=== PATIENT | male | born 1960 | race Caucasian/White ===

== ENCOUNTER 2017-03-09 16:56 | Inpatient (IN) ==
[2017-03-09] MEDS ORDERED: 0.9 % Sodium Chloride 1,000 ML IVC ONE ×2 (17:25→20:14)
--- NOTE | 2017-03-09 17:48 | Emergency Department Note ---
START Narrative - START START: I examined this patient and my medical decision-making was reviewed with the Resident Physician. I agree with the documented findings, disposition and treatment plan as described except to the extent set forth below. Patient was independently seen and evaluated by myself. Patient was seen with the emergency medicine resident Jacky Vences. Please see copy of her notes for details of this ED encounter management and disposition. Briefly: A 57-year-old male by private vehicle comfortably by his sister whose answering most questions, patient is poor historian. Complains of weakness swelling headache for the past several days and increased amount of seizures. Patient is neurologically nonfocal although slightly confused. Does follow some commands. CT scan noncontrast of the head pending EKG shows no acute ischemic changes labs are pending as well. Disposition pending. Provided 30 minutes of critical care service for this patient. Admission anticipated.
--- NOTE | 2017-03-09 17:52 | Emergency Department Note ---
Disposition Clinical Impression: LISA (acute kidney injury), Generalized weakness, Transient confusion Disposition: Admitted As Inpatient Condition: Fair Time of Disposition: 19:58 General Adult HPI - General Chief complaint: ED Dizziness Stated complaint: I think i had Seizures Time Seen by Provider: 03/09/17 17:01 Source: patient Limitations: no limitations Nursing Notes Reviewed: Yes Vital Signs Reviewed: Yes - History of Present Illness HPI Narrative: Patient is a 57-year-old male history of seizures and CKD, patient complains of weakness globally and possible seizures. Patient's sister at bedside who states she witnessed the patient being heavily confused and not answering questions but no shaking 1 day ago with one occurrence and repeat activity today 3 occurrences. Also notes increased bilateral lower leg and edema, increased abdominal girth No fevers no chills. No change in appetite no diarrhea. Patient notices periodic bright red blood when wiping ever since colonoscopy. Patient denies alcohol use, tobacco use, illicit drug use. Pain Scale: 0 - Related Data Home Medications Medication Instructions Recorded Confirmed Alprazolam [Xanax] 1 mg PO TID 01/07/16 04/26/16 Atenolol [Tenormin] 25 mg PO DAILY 04/15/16 04/26/16 Quetiapine Fumarate [Seroquel] 25 mg PO HS 04/15/16 04/26/16 Valsartan [Diovan] 320 mg PO DAILY 04/15/16 04/26/16 hydroCHLOROthiazide 12.5 mg PO DAILY 04/15/16 04/26/16 [Hydrochlorothiazide] Previous Rx's Medication Instructions Recorded Gabapentin [Neurontin] 200 mg PO TID #90 capsule 04/16/16 LevETIRAcetam [Keppra] 500 mg PO Q12HR #60 tablet 04/16/16 Omeprazole 20 mg PO DAILY #30 tablet. 04/16/16 Azithromycin [Zithromax] 250 mg PO DAILY #6 tablet 07/06/16 GuaiFENesin/Dextromethorphan 5 ml PO Q6H PRN #120 ml 07/06/16 [Robitussin Cough-Chest Dm Liq] Loratadine [Claritin] 10 mg PO DAILY #30 tablet 07/06/16 Cefdinir [Omnicef] 300 mg PO BID #20 capsule 07/12/16 Ondansetron [Zofran] 8 mg PO TID PRN #12 tablet 07/12/16 Phenylephrine HCl/Prometh HCl 5 ml PO QID PRN #120 syrup 07/12/16 [Promethazine Vc Syrup] Allergies Allergy/AdvReac Type Severity Reaction Status Date / Time No Known Allergies Allergy Verified 03/09/17 16:58 All systems ED: reviewed and negative except as stated. Review of Systems: As Per HPI Constitutional: Reports: weakness. Denies: fever, chills Eyes: Denies: vision change ENT ED: Reports: congestion Cardiovascular: Denies: chest pain, palpitations Respiratory: Reports: cough Gastrointestinal: Reports: hematochezia. Denies: abdominal pain, nausea, vomiting, diarrhea Genitourinary: Reports: other (oliguria). Denies: urgency, dysuria Musculoskeletal: Reports: joint swelling, myalgia. Denies: back pain, neck pain Integumentary: Denies: rash Neurological: Reports: weakness, paresthesias. Denies: headache Psychiatric: Reports: anxiety Endocrine: Reports: fatigue Hematological/Lymphatic: Denies: easy bleeding Allergic/Immunologic: Denies: facial swelling Past Medical History - Past Medical History Attestation: Yes The following information was validated with the patient. Source: patient, obtained from family (sister) Medical history: Reports: hypertension, renal disease, seizures Surgical history: Reports: no surgical history Psychiatric history: Reports: anxiety - Social History Smoking Status: Never smoker Smokeless Tobacco Status: No Alcohol use: Reports: none Drug use: Reports: none Physical Exam - General Limitations: no limitations General appearance: alert - Head Head exam: atraumatic, normocephalic, normal inspection - Eye Eye exam: Present: normal appearance, PERRL, EOMI - ENT ENT exam: normal exam, normal oropharynx, mucous membranes moist - Neck Neck exam: Present: normal inspection, full ROM, trachea midline - Chest Chest inspection: Present: normal inspection, symmetric chest wall rise - Respiratory Respiratory exam: Present: other (Bilateral lower lung alex Rales) - Cardiovascular Cardiovascular exam: Present: regular rate, normal rhythm, normal heart sounds - Abdominal Exam Abdominal exam: Present: tenderness (Bilateral middle sections of abdomen) - Extremities Exam Extremities exam: Present: normal capillary refill, pedal edema (1+). Absent: tenderness - Back Exam Back exam: Present: normal inspection, full ROM. Absent: tenderness, CVA tenderness (R), CVA tenderness (L) - Neurological Exam Neurological exam: Present: alert, oriented X3, CN II-XII intact - Psychiatric Psychiatric exam: Present: normal affect, normal mood - Skin Skin exam: Present: warm, dry, intact, normal color Course - Reevaluation(s) Reevaluation #1: labs ordered Time: 17:51 Reevaluation #2: Patient's labs show acute kidney injury with elevation of creatinine Time: 18:40 - Consultations Consultation #1: Dr. Troy Hospitalist has accepted Pt for admission. Time: 19:55 Vital Signs Temperature 98.2 F 03/09/17 16:58 Pulse Rate 95 03/09/17 16:58 Respiratory Rate 20 03/09/17 16:58 Blood Pressure 89/63 03/09/17 16:58 O2 Sat by Pulse Oximetry 95 03/09/17 16:58 Temperature 97.7 F 03/09/17 23:43 Pulse Rate 85 03/09/17 23:43 Respiratory Rate 20 03/09/17 23:43 Blood Pressure 127/69 03/09/17 23:43 O2 Sat by Pulse Oximetry 96 03/09/17 23:43 Oxygen Delivery Oxygen Delivery Room Air Medical Decision Making - MDM Narrative Medical decision making narrative: Patient concerning for fluid retention, weakness and confusion secondary to CVA , ACS/AL, CHF, kidney failure. CT head is negative. Patient was found to have elevated creatinine level of 2.10 which is new today. Patient's concerning for acute kidney injury with history of CKD. Patient also has oliguria. Plan for fluid rehydration with repeated boluses of normal saline, and admission for further evaluation. Patient accepts decision for admission. Patient is admitted, Dr. Troy Hospitalist has accepted Pt for admission. - Medical Records Medical records reviewed: Yes I reviewed the patient's medical records. Excerpt from previous medical record entry for previous kidney injury by Dr. Caldwell. States: The patient is presenting with multifactorial nonoliguric acute kidney injury secondary to volume depletion and rhabdomyolysis with ongoing diuretic and ARB use. We are currently awaiting the results of the ultrasound. I agree with continuing intravenous hydration. Hold his diuretic and angiotensin receptor anabel. Avoid nephrotoxins and adjust his medications for his renal function. - Lab Data Lab results reviewed: Yes I reviewed the patient's lab results. Lab results narrative: Short CBC 03/10/17 03/09/17 Range/Units 00:38 17:45 WBC 9.6 7.9 (4.3-11.1) K/mcL Hgb 12.6 L 13.5 (12.9-16.9) g/dL Hct 37.4 L 40.2 (37.5-50.1) % Plt Count 186 234 (140-400) K/mcL Neutrophils # 5.2 4.0 (1.6-8.9) K/mcL BMP 03/10/17 03/09/17 Range/Units 00:38 17:45 Sodium 141 139 (136-145) mEq/L Potassium 4.2 4.4 (3.5-4.5) mEq/L Chloride 111 H 109 (98-109) mEq/L Carbon Dioxide 22 15 L (19-29) mEq/L BUN 19 21 (8-26) mg/dL Creatinine 1.46 H 2.10 H (0.72-1.25) mg/dL Glucose 137 H 115 H (70-99) mg/dL Calcium 8.2 L 8.9 (8.6-10.8) mg/dL Cardiac Enzymes 03/09/17 Range/Units 17:45 Troponin I 0.01 (0-0.03) ng/mL Liver Function 03/10/17 Range/Units 00:38 Total Bilirubin < 0.3 (0.2-1.2) mg/dL AST 16 (5-34) Units/L ALT 29 (0-55) Units/L Alkaline Phosphatase 48 (38-126) Units/L Albumin 3.2 L (3.5-5.0) g/dL Urine 03/09/17 Range/Units 19:23 Urine Color Yellow (Yellow) Urine Clarity Clear (Clear) Urine pH 5.5 (5.0-8.0) pH Units Ur Specific [place] 1.030 H (1.010-1.025) Urine Protein Trace (Neg-Trace) mg/dL Urine Glucose (UA) Normal (Normal) mg/dL Result diagrams: 03/10/17 00:38 03/10/17 00:38 Lab Results 03/09/17 03/09/17 03/09/17 Range/Units 17:45 17:45 17:45 WBC 7.9 (4.3-11.1) K/mcL RBC 4.26 (4.19-5.50) M/mcL Hgb 13.5 (12.9-16.9) g/dL Hct 40.2 (37.5-50.1) % MCV 94.4 (83.0-100.0) fL MCH 31.7 (28.0-33.3) pg MCHC 33.6 (31.6-35.5) g/dL RDW 11.9 (11.5-14.5) % Plt Count 234 (140-400) K/mcL MPV 10.7 (9.4-12.4) fL Immature Gran % 0.8 (0-4) % Seg Neutrophils % 50.8 % Lymphocytes % 37.0 % Monocytes % 9.6 % Eosinophils % 0.9 % Basophils % 0.9 % Neutrophils # 4.0 (1.6-8.9) K/mcL Lymphocytes # 2.9 (0.6-4.6) K/mcL Monocytes # 0.8 (0.0-1.3) K/mcL Eosinophils # 0.1 (0.0-0.6) K/mcL Basophils # 0.1 (0.0-0.2) K/mcL Immature Plt Fraction 5.2 (1.1-6.1) % Sodium 139 (136-145) mEq/L Potassium 4.4 (3.5-4.5) mEq/L Chloride 109 (98-109) mEq/L Carbon Dioxide 15 L (19-29) mEq/L BUN 21 (8-26) mg/dL Creatinine 2.10 H (0.72-1.25) mg/dL Est GFR ( Amer) 40 L (> 60) Est GFR (Non-Af Amer) 33 L (> 60) BUN/Creatinine Ratio 10 (6-26) Glucose 115 H (70-99) mg/dL POC Glucose (58-89) Calculated Osmolality 292 (280-300) Calcium 8.9 (8.6-10.8) mg/dL Creatine Kinase 90 (30-200) Units/L Troponin I 0.01 (0-0.03) ng/mL Urine Color (Yellow) Urine Clarity (Clear) Urine pH (5.0-8.0) pH Units Ur Specific [place] (1.010-1.025) Urine Protein (Neg-Trace) mg/dL Urine Glucose (UA) (Normal) mg/dL Urine Ketones (Negative) mg/dL Urine Blood (Negative) Urine Nitrite (Negative) Urine Bilirubin (Negative) Urine Urobilinogen (Normal) mg/dL Ur Leukocyte Esterase (Negative) Ur Culture Indicated? (NO) 03/09/17 03/09/17 Range/Units 19:23 20:42 WBC (4.3-11.1) K/mcL RBC (4.19-5.50) M/mcL Hgb (12.9-16.9) g/dL Hct (37.5-50.1) % MCV (83.0-100.0) fL MCH (28.0-33.3) pg MCHC (31.6-35.5) g/dL RDW (11.5-14.5) % Plt Count (140-400) K/mcL MPV (9.4-12.4) fL Immature Gran % (0-4) % Seg Neutrophils % % Lymphocytes % % Monocytes % % Eosinophils % % Basophils % % Neutrophils # (1.6-8.9) K/mcL Lymphocytes # (0.6-4.6) K/mcL Monocytes # (0.0-1.3) K/mcL Eosinophils # (0.0-0.6) K/mcL Basophils # (0.0-0.2) K/mcL Immature Plt Fraction (1.1-6.1) % Sodium (136-145) mEq/L Potassium (3.5-4.5) mEq/L Chloride (98-109) mEq/L Carbon Dioxide (19-29) mEq/L BUN (8-26) mg/dL Creatinine (0.72-1.25) mg/dL Est GFR ( Amer) (> 60) Est GFR (Non-Af Amer) (> 60) BUN/Creatinine Ratio (6-26) Glucose (70-99) mg/dL POC Glucose 90 H (58-89) Calculated Osmolality (280-300) Calcium (8.6-10.8) mg/dL Creatine Kinase (30-200) Units/L Troponin I (0-0.03) ng/mL Urine Color Yellow (Yellow) Urine Clarity Clear (Clear) Urine pH 5.5 (5.0-8.0) pH Units Ur Specific [place] 1.030 H (1.010-1.025) Urine Protein Trace (Neg-Trace) mg/dL Urine Glucose (UA) Normal (Normal) mg/dL Urine Ketones Trace H (Negative) mg/dL Urine Blood Negative (Negative) Urine Nitrite Negative (Negative) Urine Bilirubin Small H (Negative) Urine Urobilinogen Normal (Normal) mg/dL Ur Leukocyte Esterase Negative (Negative) Ur Culture Indicated? NO (NO) - Radiology Data Radiology results reviewed: Yes I reviewed the patient's radiology results. Head CT 03/09/17 17:25 IMPRESSION: No acute intracranial abnormality. D/ / Isaac Stein MD / Isaac Stein MD Interpreting Provider: Isaac Steni MD - EKG Data EKG #1 EKG attestation: Yes I reviewed and interpreted this EKG. EKG results narrative: EKG taken 03/09/2017 at 1729 hrs. shows sinus rhythm with no acute ST elevations or depressions in any leads, no QRS widening or QT prolongation. Previous EKG for comparison shows sinus tachycardia this is taking 12/27/[address] changes no ST elevations and depressions in any leads. No QRS Widening or QT prolongation.
[2017-03-09 17:54] LABS: Basophils # 0.1 K/mcL (0.0-0.2); Basophils % 0.9 %; Eosinophils # 0.1 K/mcL (0.0-0.6); Eosinophils % 0.9 %; Hematocrit 40.2 % (37.5-50.1); Hemoglobin 13.5 g/dL (12.9-16.9); Immature Granulocytes % 0.8 % (0-4); Immature Platelets 5.2 % (1.1-6.1); Lymphocytes # 2.9 K/mcL (0.6-4.6); Mean Corpuscular HGB Conc 33.6 g/dL (31.6-35.5); Mean Corpuscular Hemoglobin 31.7 pg (28.0-33.3); Mean Corpuscular Volume 94.4 fL (83.0-100.0); Mean Platelet Volume 10.7 fL (9.4-12.4); Monocytes # 0.8 K/mcL (0.0-1.3); Monocytes % 9.6 %; Platelet Count 234 K/mcL (140-400); Red Blood Count 4.26 M/mcL (4.19-5.50); Red Cell Distribution Width 11.9 % (11.5-14.5); Segmented Neutrophils % 50.8 %
[2017-03-09 18:00] LABS: Potassium 4.4 mEq/L (3.5-4.5)
[2017-03-09 18:42] LABS: Calcium 8.9 mg/dL (8.6-10.8)
[2017-03-09 19:32] LABS: Bilirubin,Urine Small (Negative); Blood,Urine Negative (Negative); Color,Urine Yellow (Yellow); Glucose,Urine (UA) Normal (Normal); Ketones,Urine Trace mg/dL (Negative); Leukocyte Esterase,Urine Negative (Negative); Nitrite,Urine Negative (Negative); PH,Urine 5.5 pH Units (5.0-8.0); Protein,Urine Trace mg/dL (Neg-Trace); Urobilinogen,Urine Normal (Normal)
[2017-03-09 19:37] LABS: Clarity,Urine Clear (Clear)
[2017-03-09] MEDS ORDERED: Acetaminophen 325 MG TABLET PO PRN (21:24)
[2017-03-09] MEDS ORDERED: Ondansetron 4 MG/2 ML VIAL IVP PRN (21:24)
[2017-03-09] MEDS ORDERED: Naloxone 0.4 MG/ML INJ IVP PRN (21:24)
--- NOTE | 2017-03-09 21:43 | Internal Med History&Physical ---
Date of Encounter: 03/09/17 Time of Encounter: 21:35 Assessment and Plan (1) LISA (acute kidney injury) Current visit: No Status: Resolved 1. I suspect this is due to volume depletion and BP meds. 2. Hold BP meds and diuretics. 3. Verify home meds when possible. 4. IVF hydration. 5. Monitor I/O. 6. Consult nephrology. (2) Dehydration Current visit: No Status: Acute 1. IVF and oral hydration. 2. Stop diuretics. (3) Seizure Current visit: No Status: Acute 1. Continue Keppra and Xanax per home dosing. 2. Seizure precautions. 3. Consult Neurology. (4) DVT prophylaxis Current visit: No Status: Acute 1. Heparin SQ. Internal Medicine - H&P: HPI Chief complaint: seizure; LISA Admitted From: Emergency Dept Plans for Post Hospital Care: Home History of present illness: Mr. Morgan is a 57 year old male who presents the ER tonight with complaints of seizure activity at home, weakness, and low blood pressure. He was found to have evidence of acute kidney failure in the ER. He was also hypotensive and volume depleted. As such, he was admitted to the hospitalist service. Upon my assessment of the patient, he is in no distress. He has a seizure disorder and states he was well controlled with rare breakthrough seizures. However, today, he states he had a seizure witnessed by his sister. He also states his oral fluid intake has been minimal lately and his urine output has been minimal as well. According to his medication list, he takes a diuretic and an ARB for blood pressure control. His medication list has not been validated and he can not confirm his medications. However, he does admit to taking a diuretic and blood pressure medications. I suspect he became volume depleted over time and hypotensive with his blood pressure medications. We will fluid resuscitate him and watch him closely. He denies any fevers, chills, cough, congestion, dysuria, headache, sore throat , vomiting, or diarrhea. Overall, he has been feeling well up until yesterday and today when he had a seizure and decreased oral intake. Past Med Surg Social Fam HX - Past Medical History Attestation: Yes The following information was validated with the patient. Source: patient, old records reviewed Medical history: hypertension, renal disease, seizures Psychiatric history: anxiety - Past Surgical History Surgical History: no surgical history - Social History Smoking Status: Never smoker Smokeless Tobacco Status: No Alcohol use: none Drug use: none Current living situation: Home, With Family Activity Level: Independent ambulation Recent Out of Country Travel Within the Last 8 Weeks: No - Family History Mother History Unknown: Yes Father History Unknown: Yes Sister Living Status: Still Living Hx Family Genitourinary Disorders: No Internal Medicine - H&P: Meds Alprazolam [Xanax] 1 mg PO TID 01/07/16 [History] Atenolol [Tenormin] 25 mg PO DAILY 04/15/16 [History] Quetiapine Fumarate [Seroquel] 25 mg PO HS 04/15/16 [History] Valsartan [Diovan] 320 mg PO DAILY 04/15/16 [History] hydroCHLOROthiazide [Hydrochlorothiazide] 12.5 mg PO DAILY 04/15/16 [History] Gabapentin [Neurontin] 200 mg PO TID #90 capsule 04/16/16 [Rx] LevETIRAcetam [Keppra] 500 mg PO Q12HR #60 tablet 04/16/16 [Rx] Omeprazole 20 mg PO DAILY #30 tablet. 04/16/16 [Rx] Azithromycin [Zithromax] 250 mg PO DAILY #6 tablet 07/06/16 [Rx] GuaiFENesin/Dextromethorphan [Robitussin Cough-Chest Dm Liq] 5 ml PO Q6H PRN # 120 ml 07/06/16 [Rx] Loratadine [Claritin] 10 mg PO DAILY #30 tablet 07/06/16 [Rx] Cefdinir [Omnicef] 300 mg PO BID #20 capsule 07/12/16 [Rx] Ondansetron [Zofran] 8 mg PO TID PRN #12 tablet 07/12/16 [Rx] Phenylephrine HCl/Prometh HCl [Promethazine Vc Syrup] 5 ml PO QID PRN #120 syrup 07/12/16 [Rx] 3 Allergy/AdvReac Type Severity Reaction Status Date / Time No Known Allergies Allergy Verified 03/09/17 16:58 - Constitutional Constitutional: no chills, no fever(s), no night sweats - EENT Eyes: no blurry vision, no change in vision Ears: no ear pain, no tinnitus Nose, mouth and throat: no nasal congestion, no sinus pain, no sinus pressure, no sore throat - Cardiovascular Cardiovascular ROS IM: no chest pain, no diaphoresis, no dyspnea, no dyspnea on exertion, no edema - Respiratory Respiratory: no cough, no dyspnea, no chest congestion, no excessive phlegm production, no change in phlegm color - Gastrointestinal Gastrointestinal: no abdominal pain, no diarrhea, no hematemesis, no hematochezia, no melena, no nausea, no vomiting - Genitourinary Genitourinary ROS male: no dysuria, no flank pain, no hematuria - Musculoskeletal Musculoskeletal ROS IM: no arthralgias, no back pain - Integumentary Integumentary IM: no rash, no jaundice - Neurological Neurological ROS: convulsions, no dizziness, no focal weakness, no frequent falls, no headache(s) - Psychiatric Psychiatric: no anxiety, no depression - Endocrine Endocrine IM: no cold intolerance, no heat intolerance, no polydipsia, no polyuria - Hematologic/Lymphatic Hematologic/Lymphatic: no easy bruising, no lymphadenopathy - Allergic/Immunologic Allergic/Immunologic: no wheezing, no GI upset with certain foods - Constitutional Vitals: Temp Pulse Resp BP Pulse Ox 97.8 F 73 18 107/90 96 03/09/17 20:59 03/09/17 20:59 03/09/17 20:59 03/09/17 20:59 03/09/17 20:59 General appearance: Present: cooperative, A&O X 3, pleasant, no acute distress, answers questions appropriately - Head Head exam: Present: atraumatic, normal inspection - Eye Eye exam: Present: EOMI, normal appearance, PERRL. Absent: scleral icterus Pupils: Present: normal accommodation - ENT ENT exam: Present: mucous membranes dry, normal exam - Neck Neck exam general surgery: Present: full ROM, supple. Absent: tenderness, nuchal rigidity - Expanded Neck Exam Neck exam: Absent: carotid bruit - Respiratory Respiratory exam: Present: CTAB. Absent: chest wall tenderness, rales, respiratory distress, rhonchi, wheezes - Cardiovascular Cardiovascular exam: Present: RRR, +S1, +S2. Absent: diastolic murmur, systolic murmur - GI/Abdominal GI/Abdominal exam: Present: normal bowel sounds, soft. Absent: hepatomegaly, mass, splenomegaly, tenderness - Extremities Exam Extremities exam: Present: full ROM, normal capillary refill, warm, radial pulses palpable and symmetrical. Absent: calf tenderness, joint swelling, pedal edema - Back Exam Back exam: Present: normal inspection. Absent: CVA tenderness (L), CVA tenderness (R) - Neurological Exam Neurological exam: Present: alert, CN II-XII intact, oriented X3, reflexes normal, no focal deficits, strengths equal and symetr throughout - Psychiatric Psychiatric exam: Present: normal affect, normal mood - Skin Skin exam: Present: dry, warm. Absent: rash Internal Med - H&P Results - Labs CBC & Chem 7: 03/09/17 17:45 03/09/17 17:45 - EKG Data -: EKG Interpreted by Myself EKG shows normal: sinus rhythm - EKG Data Prior EKG available for review: yes When compared to previous EKG: there is no significant change EKG comments: 03/09/17 21:47 NSR; WNL - Diagnostic Studies CT scan - head Additional comments: Report reviewed -- negative
[2017-03-09] MEDS: ALPRAZolam 1 MG TABLET PO PRN (22:47)
[2017-03-09] MEDS: levETIRAcetam 250 MG TABLET PO SCH (23:36)
[2017-03-10 00:53] LABS: Basophils # 0.1 K/mcL (0.0-0.2); Basophils % 0.5 %; Eosinophils # 0.1 K/mcL (0.0-0.6); Eosinophils % 1.3 %; Hematocrit 37.4 % (37.5-50.1); Hemoglobin 12.6 g/dL (12.9-16.9); Immature Granulocytes % 0.5 % (0-4); Immature Platelets 5.2 % (1.1-6.1); Lymphocytes # 3.4 K/mcL (0.6-4.6); Lymphocytes % 34.9 %; Mean Corpuscular HGB Conc 33.7 g/dL (31.6-35.5); Mean Corpuscular Hemoglobin 32.1 pg (28.0-33.3); Mean Corpuscular Volume 95.4 fL (83.0-100.0); Monocytes # 0.8 K/mcL (0.0-1.3); Monocytes % 8.6 %; Neutrophils # 5.2 K/mcL (1.6-8.9); Platelet Count 186 K/mcL (140-400); Red Blood Count 3.92 M/mcL (4.19-5.50); Red Cell Distribution Width 12.2 % (11.5-14.5); Segmented Neutrophils % 54.2 %
[2017-03-10 01:09] LABS: BUN/Creatinine Ratio 13 (6-26); Blood Urea Nitrogen 19 mg/dL (8-26); Carbon Dioxide 22 mEq/L (19-29); Chloride 111 mEq/L (98-109); Glucose 137 mg/dL (70-99); Osmolality,Calculated 296 (280-300); Potassium 4.2 mEq/L (3.5-4.5); Sodium 141 mEq/L (136-145); eGFR For African Americans > 60 (> 60); eGFR For Non-African Americans 50 (> 60)
[2017-03-10 01:10] LABS: Alanine Aminotransferase 29 Units/L (0-55); Albumin 3.2 g/dL (3.5-5.0); Albumin/Globulin Ratio 1.1 (1.1-2.2); Alkaline Phosphatase 48 Units/L (38-126); Aspartate Amino Transferase 16 Units/L (5-34); Calcium 8.2 mg/dL (8.6-10.8); Globulin 2.9 g/dL (2.4-3.5); Magnesium 2.1 mg/dL (1.6-2.6); Total Protein 6.1 g/dL (6.0-8.3)
[2017-03-10 01:12] LABS: Bilirubin,Total < 0.3 mg/dL (0.2-1.2)
[2017-03-10] MEDS: 0.9 % Sodium Chloride 1,000 ML IVC SCH ×4 (02:15→18:56)
[2017-03-10] MEDS: *HR* Heparin 5,000 UNIT/ML VIAL SQ SCH ×2 (05:31→17:41)
[2017-03-10] MEDS: levETIRAcetam 250 MG TABLET PO SCH (08:55)
--- NOTE | 2017-03-10 09:55 | Internal Med Progress Note ---
<Nicole García - Last Filed: 03/10/17 11:36> Date of Encounter: 03/10/17 Time of Encounter: 09:55 - Assessment and plan (1) LISA (acute kidney injury) Current Visit: Yes Status: Acute Assessment and plan: Suspected to be secondary to volume depletion and BP meds Baseline SCr around 1, follows with Dr. Tavarez SCr 1.46<2.10, GFR 50 3L intake since admission UOP 275ml 03/09, 1675ml 03/10 Plan: -Continue IVF, will decrease rate to 75/hr -Strict I/O -Hold BP meds and diuretics -Avoid nephrotoxins and renally dose medications -Nephrology has been consulted, appreciate their recommendations. (2) Dehydration Current Visit: Yes Status: Acute Assessment and plan: Patient has had decreased oral intake in the setting of taking PO diuretics Plan: -IVF -Oral hydration -Stop diuretics (3) Seizure Current Visit: Yes Status: Acute Assessment and plan: Patient has history of seizure disorder, follow with Dr. Bright States he has good control with rare breakthrough seizures--last seizure several months ago presented with seizure activity 03/09, states he was weak and not feeling well prior, decreased oral intake Plan: -Continue Keppra 500mg QAM and 1000mg QPM -Continue PRN xanax -Continue seroquel QHS -Seizure precautions -Neurology consulted, appreciate their recommendations. (4) DVT prophylaxis Current Visit: No Status: Acute Assessment and plan: Heparin SQ - Subjective Interval history: Patient seen and examined. He states that he is feeling much better, is less dizzy when standing or sitting up at the bedside. No CP, SOB, abd pain, dysuria. He notes he has been taking diovan and atenolol, has not been taking HCTZ because it has not been sent by [facility]. - Constitutional Vitals: Temp Pulse Resp BP Pulse Ox 97.5 F L 85 20 128/68 98 03/10/17 07:36 03/10/17 08:36 03/10/17 08:36 03/10/17 08:36 03/10/17 08:36 General appearance: Present: cooperative, A&O X 3, pleasant, no acute distress, obese, answers questions appropriately - Head Head exam: Present: atraumatic, normocephalic - Eye Eye exam: Present: EOMI, PERRL, conjuntiva pink, sclera anicteric Pupils: Present: normal accommodation, PERRL - Neck Neck exam general surgery: Present: supple, trachea midline - Respiratory Respiratory exam: Present: rhonchi (b/l bases). Absent: accessory muscle use, respiratory distress, tachypnea - Cardiovascular Cardiovascular exam: Present: RRR, +S1, +S2. Absent: diastolic murmur, gallop, rubs, systolic murmur - GI/Abdominal GI/Abdominal exam: Present: normal bowel sounds, soft, no peritoneal signs. Absent: distended, tenderness - Extremities Exam Extremities exam: Present: normal capillary refill, pedal edema, warm, radial pulses palpable and symmetrical. Absent: calf tenderness, cyanotic - Neurological Exam Neurological exam: Present: oriented X3, no focal deficits. Absent: motor sensory deficit, facial droop, speech deficit - Psychiatric Psychiatric exam: Present: normal affect, normal mood - Skin Skin exam: Present: dry, intact, warm Internal Medicine: Result - Labs CBC & Chem 7: 03/10/17 00:38 03/10/17 00:38 Labs: Short CBC 03/10/17 Range/Units 00:38 WBC 9.6 (4.3-11.1) K/mcL Hgb 12.6 L (12.9-16.9) g/dL Hct 37.4 L (37.5-50.1) % Plt Count 186 (140-400) K/mcL Neutrophils # 5.2 (1.6-8.9) K/mcL BMP 03/10/17 00:38 Sodium 141 Potassium 4.2 Chloride 111 H Carbon Dioxide 22 BUN 19 Creatinine 1.46 H Glucose 137 H Calcium 8.2 L Liver Function 03/10/17 Range/Units 00:38 Total Bilirubin < 0.3 (0.2-1.2) mg/dL AST 16 (5-34) Units/L ALT 29 (0-55) Units/L Alkaline Phosphatase 48 (38-126) Units/L Albumin 3.2 L (3.5-5.0) g/dL Consult Discharge Plan - Plan Referrals: Joe Harkins, PAC [Primary Care Provider] - <Rah Hernandez H - Last Filed: 03/10/17 15:03> Date of Encounter: 03/10/17 - Constitutional Vitals: Temp Pulse Resp BP Pulse Ox 97.6 F 85 20 128/68 98 03/10/17 11:49 03/10/17 08:36 03/10/17 08:36 03/10/17 08:36 03/10/17 08:36 Internal Medicine: Result - Labs CBC & Chem 7: 03/10/17 00:38 03/10/17 00:38 Labs: Short CBC 03/10/17 Range/Units 00:38 WBC 9.6 (4.3-11.1) K/mcL Hgb 12.6 L (12.9-16.9) g/dL Hct 37.4 L (37.5-50.1) % Plt Count 186 (140-400) K/mcL Neutrophils # 5.2 (1.6-8.9) K/mcL BMP 03/10/17 00:38 Sodium 141 Potassium 4.2 Chloride 111 H Carbon Dioxide 22 BUN 19 Creatinine 1.46 H Glucose 137 H Calcium 8.2 L Liver Function 03/10/17 Range/Units 00:38 Total Bilirubin < 0.3 (0.2-1.2) mg/dL AST 16 (5-34) Units/L ALT 29 (0-55) Units/L Alkaline Phosphatase 48 (38-126) Units/L Albumin 3.2 L (3.5-5.0) g/dL - Attending Attestation continue IVF , rechech BMP in am I examined this patient and my medical decision-making was reviewed with the Resident Physician. I agree with the documented findings, disposition and treatment plan as described except to the extent set forth below.
[2017-03-10] MEDS: ALPRAZolam 1 MG TABLET PO PRN ×3 (10:38→20:02)
--- NOTE | 2017-03-10 12:50 | Event Note ---
Date of Encounter: 03/10/17 Time of Encounter: 12:33 Nephrology Non-oliguric LISA, likely prerenal. Continue to hold is ARB and provide IVF. He has a hx of frequent AKIs. Full note and recommendations to follow tomorrow. Thank you for consulting the [facility]. Will follow with you.
[2017-03-10] MEDS: Pregabalin 75 MG CAPSULE PO SCH (16:05)
[2017-03-10] MEDS ORDERED: levETIRAcetam 250 MG TABLET PO SCH (18:00)
--- NOTE | 2017-03-10 18:08 | Electrocardiograph Report ---
[address] [address] Test Date: 2017-03-09 Pat Name: Arley Morgan Department: 0 Room: 02 Gender: M Patient Intake Coordinator: [facility] : 1960 Requested By: Robbie Connolly Order Number: [id number] Reading MD: Didier Sewell MD Measurements Intervals [place] Rate: 88 P: 23 [place]: 125 QRS: 12 QRSD: 96 T: 19 QT: 373 QTc: 419 Interpretive Statements SINUS RHYTHM Electronically Signed On 03-10-2017 18:07:00 EDT by Didier Sewell MD
--- NOTE | 2017-03-10 19:37 | Neurology Progress Note ---
Date of Encounter: 03/10/17 Time of Encounter: 19:33 Assessment and Plan (1) Seizure Current Visit: Yes Status: Acute These are likely partial seizures from description but it may also be related to worsening encephalopathy secondary to acute renal failure. it is noted that the spells were also associated with significant weakness and confusion. He has been feeling with current medical treatment. Will recommend no changes in his antiepileptic therapy. Continue Keppra 500mg and 1000mg qpm. He is to follow up with Dr. Tammie Guzman in one week after discharge. Subjective Principal diagnosis: seizure Interval history: Patient is a 57 year old man with seizure disorder and CKD who developed seizure likely activity x2 within the last few days prior to admission. Patient is known to neurology here at [facility]. Was last seen 10/2016. On Keppra 500mg qam and 1000mg qpm. Seizures described as 'bewildered state' spells described by his sister. The spells last 3-4 minutes in duration and after that he would be confused for a while. He also experienced diffuse weakness and leg weakness. no GTC reported. No convulsion type of seizures. First seizure occurred about one year ago. It was the same thing followed by a fall. been taking keppra 500mg qam and 1000mg qpm. It has been helping. Patient is currently feeling better. He has chronic kidney disease and after fluid rescucitation he felt better already. Would like to continue what he is taking without changes. Objective - Constitutional Vitals: Temp Pulse Resp BP Pulse Ox 97.8 F 89 20 115/93 98 03/10/17 17:05 03/10/17 17:00 03/10/17 17:00 03/10/17 17:00 03/10/17 08:36 Results - Laboratory Findings CBC and BMP: 03/10/17 00:38 03/10/17 00:38 Abnormal lab findings: Abnormal lab results RBC 3.92 M/mcL (4.19-5.50) L 03/10/17 00:38 Hgb 12.6 g/dL (12.9-16.9) L 03/10/17 00:38 Hct 37.4 % (37.5-50.1) L 03/10/17 00:38 Chloride 111 mEq/L (98-109) H 03/10/17 00:38 Creatinine 1.46 mg/dL (0.72-1.25) H 03/10/17 00:38 Est GFR (Non-Af Amer) 50 (> 60) L 03/10/17 00:38 Glucose 137 mg/dL (70-99) H 03/10/17 00:38 POC Glucose 90 (58-89) H 03/09/17 20:42 Calcium 8.2 mg/dL (8.6-10.8) L 03/10/17 00:38 Albumin 3.2 g/dL (3.5-5.0) L 03/10/17 00:38 Ur Specific [place] 1.030 (1.010-1.025) H 03/09/17 19:23 Urine Ketones Trace mg/dL (Negative) H 03/09/17 19:23 Urine Bilirubin Small (Negative) H 03/09/17 19:23 Consult Discharge Plan - Plan Referrals: Joe Harkins, PAC [Primary Care Provider] -
[2017-03-11] MEDS: 0.9 % Sodium Chloride 1,000 ML IVC SCH (05:02)
[2017-03-11] MEDS: *HR* Heparin 5,000 UNIT/ML VIAL SQ SCH (05:03)
[2017-03-11 05:13] LABS: Hematocrit 38.7 % (37.5-50.1); Hemoglobin 12.9 g/dL (12.9-16.9); Mean Corpuscular HGB Conc 33.3 g/dL (31.6-35.5); Mean Corpuscular Hemoglobin 31.1 pg (28.0-33.3); Mean Corpuscular Volume 93.3 fL (83.0-100.0); Mean Platelet Volume 10.8 fL (9.4-12.4); Platelet Count 178 K/mcL (140-400); Red Blood Count 4.15 M/mcL (4.19-5.50); Red Cell Distribution Width 11.7 % (11.5-14.5)
[2017-03-11 05:29] LABS: BUN/Creatinine Ratio 15 (6-26); Blood Urea Nitrogen 15 mg/dL (8-26); Calcium 8.7 mg/dL (8.6-10.8); Carbon Dioxide 24 mEq/L (19-29); Chloride 110 mEq/L (98-109); Glucose 112 mg/dL (70-99); Osmolality,Calculated 294 (280-300); Potassium 4.4 mEq/L (3.5-4.5); Sodium 141 mEq/L (136-145); eGFR For African Americans > 60 (> 60); eGFR For Non-African Americans > 60 (> 60)
[2017-03-11 05:31] LABS: Albumin 3.2 g/dL (3.5-5.0); Phosphorous 3.2 mg/dL (2.3-4.7)
[2017-03-11 07:17] VITALS: BP 142/88
--- NOTE | 2017-03-11 08:03 | Event Note ---
Date of Encounter: 03/11/17 Time of Encounter: 08:01 Nephrology chart review Pt had a prerenal LISA which has resolved to a normal SCr. He already happens to have a follow-up appt on 03/20/17 at 1:40pm. I will sign-off at this time, and I' ll follow-up with him in the clinic. Thank you.
[2017-03-11] MEDS: Pregabalin 75 MG CAPSULE PO SCH (08:48)
[2017-03-11] MEDS: ALPRAZolam 1 MG TABLET PO PRN (08:48)
[2017-03-11] MEDS ORDERED: levETIRAcetam 250 MG TABLET PO SCH (09:00)
--- NOTE | 2017-03-11 09:29 | Discharge Summary ---
<Eduardo Mejia R - Last Filed: 03/11/17 13:53> Date of Encounter: 03/11/17 Time of Encounter: 09:27 - Discharge Diagnosis (1) Seizure Priority: Primary Status: Acute (2) LISA (acute kidney injury) Priority: Secondary Status: Acute (3) Dehydration Priority: Secondary Status: Acute - Discharge Medications Home Medications: Alprazolam [Xanax] 1 mg PO TID 01/07/16 [History] Atenolol [Tenormin] 25 mg PO DAILY 04/15/16 [History] Quetiapine Fumarate [Seroquel] 25 mg PO HS 04/15/16 [History] Omeprazole 20 mg PO DAILY #30 tablet. 04/16/16 [Rx] Loratadine [Claritin] 10 mg PO DAILY #30 tablet 07/06/16 [Rx] LevETIRAcetam [Keppra] 1,000 mg PO QPM 03/10/17 [History] LevETIRAcetam [Roweepra] 500 mg PO QAM 03/10/17 [History] Pregabalin [Lyrica] 75 mg PO DAILY 03/10/17 [History] Allergies/Adverse Reactions: 3 Allergy/AdvReac Type Severity Reaction Status Date / Time No Known Allergies Allergy Verified 03/09/17 16:58 Date of admission: 03/09/17 21:24 Primary care physician: Joe Harkins Discharging clinician: Eduardo Mejia Anticipated date of discharge: 03/11/17 - Patient Status Disposition: Home, Self-Care Condition: Fair Functional capacity at discharge: independent ambulation Overall status at discharge: patient is progressing back to baseline - Discharge Instructions Instructions: Epilepsy (GEN), Anemia (GEN) Follow Up With: Tammie Guzman MD [Partnered Physician] - 03/18/17 12:30 pm Joe Harkins PAC [Primary Care Provider] - 03/18/17 10:20 am () Additional Instructions: Take medications as prescribed - it is very important to take valproic acid as prescribed Do NOT take Diovan until you follow-up with your Kidney specialist on 03/20/17 Continue to drink water to avoid dehydration Follow-up with your primacy care provider Return to the hospital if your symptoms worsen or return - Diet and Activity Activity: increase activity as tolerated Diet: advance to your usual diet Interval History: Patient seen and examined. He reports that he feels well without any complaints. Denies headaches, blurry vision, dizziness, chest pain, dyspnea, N/V /D, dysuria, or leg pain/edema. Hospital course: Mr. Morgan is a 57 year old male with PMH of seizures and CKD presenting with seizure like activity. Patient's sister witnessed the patient being heavily confused and not answering questions but no shaking on four occasions prior to presentation. He usually has good seizure control on Keppra, with occasional breakthrough seizures. He also presented with LISA and dehydration which was addressed with IV fluids. His ARB was held during his hospitalization and we will discharge with recommendation to hold ARB until further follow-up with Nephrology. Neurology recommended that he continue his home Keppra dose and follow-up as an out-patient - Time Spent with Patient Total time spent providing and/or coordinating discharge services: Greater than 30 minutes - Constitutional Vitals: Temp Pulse Resp BP Pulse Ox 97.5 F L 92 16 142/88 95 03/11/17 07:10 03/11/17 07:10 03/11/17 07:10 03/11/17 07:10 03/11/17 07:10 General appearance: Present: cooperative, A&O X 3, pleasant, no acute distress, obese, answers questions appropriately - Head Head exam: Present: atraumatic, normocephalic - Eye Eye exam: Present: conjuntiva pink, sclera anicteric - ENT ENT exam: Present: mucous membranes moist - Respiratory Respiratory exam: Present: CTAB. Absent: rales, rhonchi, wheezes - Cardiovascular Cardiovascular exam: Present: RRR, +S1, +S2. Absent: diastolic murmur, systolic murmur - GI/Abdominal GI/Abdominal exam: Present: normal bowel sounds, soft. Absent: distended, rigid , tenderness - Extremities Exam Extremities exam: Present: pedal edema, warm, radial pulses palpable and symmetrical. Absent: tenderness - Neurological Exam Neurological exam: Present: alert, CN II-XII intact, oriented X3, no focal deficits - Skin Skin exam: Present: dry, intact <Kelsie,Ta P - Last Filed: 03/11/17 18:35> Date of Encounter: 03/11/17 Date of admission: 03/09/17 21:24 Primary care physician: Joe Cruz [facility] Hospital course: Mr. Morgan is a 57 year old male - Time Spent with Patient Total time spent providing and/or coordinating discharge services: - Constitutional Vitals: Temp Pulse Resp BP Pulse Ox 97.5 F L 92 16 142/88 95 03/11/17 07:10 03/11/17 07:10 03/11/17 07:10 03/11/17 07:10 03/11/17 07:10 - Attending Attestation I examined this patient and my medical decision-making was reviewed with the Resident Physician. I agree with the documented findings, disposition and treatment plan as described except to the extent set forth below.
== END 2017-03-11 10:48 | disposition home or self-care (01) | DRG 100 ==
LOC: EMEROO 16:56 → ICNU 16:56 → SUATTDRO 21:24 → 2ANU 03-10 18:45
PROVIDERS: ADMIT Pediatrics; ATTEND Internal Medicine

== ENCOUNTER 2017-08-20 17:50 | Observation (INO) ==
[2017-08-20] MEDS ORDERED: Furosemide 40 MG/4 ML VIAL IVP ONE (18:23)
--- NOTE | 2017-08-20 18:28 | Emergency Department Note ---
Disposition Clinical Impression: Anasarca associated with disorder of kidney, History of seizures Disposition: Admitted As Inpatient Condition: Fair Time of Disposition: 20:09 General Adult HPI - General Chief complaint: ED Shortness of Breath/Dyspnea Stated complaint: extremity swelling Time Seen by Provider: 08/20/17 17:58 Source: patient Limitations: no limitations Nursing Notes Reviewed: Yes Vital Signs Reviewed: Yes - History of Present Illness HPI Narrative: 57-year-old male complains of shortness of breath, bilateral leg swelling that has been worsening over the past 4 days secondary to medication noncompliance. Patient states he ran out of his Lasix and did not receive his refill. 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 Patient states he had issues with his kidneys for the past year and has been hospitalized secondary to acute renal failure. Patient complains of discomfort in bilateral knees secondary to the swelling. 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 Patients reports the seizure was not tonic-clonic. Patient took his Keppra earlier today. Patient fell, but was caught by his . Pain Scale: 10 - Related Data Home Medications Medication Instructions Recorded Confirmed Alprazolam [Xanax] 1 mg PO TID 01/07/16 08/20/17 Atenolol [Tenormin] 25 mg PO DAILY 04/15/16 08/20/17 LevETIRAcetam [Keppra] 500 mg PO TID 03/10/17 08/20/17 Pregabalin [Lyrica] 75 mg PO DAILY 03/10/17 08/20/17 Furosemide [Lasix] 20 mg PO QAM 08/20/17 08/20/17 Furosemide [Lasix] 20 mg PO QPM PRN 08/20/17 08/20/17 Hydralazine HCl 100 mg PO TID 08/20/17 08/20/17 Quetiapine Fumarate [Seroquel] 50 mg PO HS 08/20/17 08/20/17 Previous Rx's Medication Instructions Recorded Omeprazole 20 mg PO DAILY #30 tablet. 04/16/16 Allergies Allergy/AdvReac Type Severity Reaction Status Date / Time No Known Allergies Allergy Verified 08/20/17 17:55 All systems ED: reviewed and negative except as stated. Review of Systems: As Per HPI Constitutional: Denies: fever, weakness Respiratory: Reports: dyspnea. Denies: cough Gastrointestinal: Denies: abdominal pain, nausea, vomiting, diarrhea Genitourinary: Reports: other (oliguria) Past Medical History - Past Medical History Attestation: Yes The following information was validated with the patient. Source: patient, nursing notes reviewed Medical history: Reports: hypertension, renal disease, seizures Surgical history: Reports: no surgical history Psychiatric history: Reports: anxiety - Social History Smoking Status: Never smoker Smokeless Tobacco Status: No Alcohol use: Reports: none Drug use: Reports: none Physical Exam Vital Signs Temperature 97.8 F 08/20/17 17:52 Pulse Rate 97 08/20/17 17:52 Respiratory Rate 08/20/17 17:52 Blood Pressure 129/85 08/20/17 17:52 O2 Sat by Pulse Oximetry 08/20/17 17:52 Temperature 97.8 F 08/20/17 17:52 Pulse Rate 08/20/17 17:52 Respiratory Rate 08/20/17 17:52 Blood Pressure 129/85 08/20/17 17:52 O2 Sat by Pulse Oximetry 08/20/17 17:52 Oxygen Delivery Oxygen Delivery Room Air CONSTITUTIONAL: Alert and oriented X3, well-nourished, well appearing, in no apparent distress HEAD: Normocephalic; atraumatic. EYES: PERRL, no scleral icterus. NOSE: The nose is normal in appearance without rhinorrhea RESP: Normal chest excursion with respiration; breath sounds with bibasilar rales. No wheezing CARD: Regular rhythm, without murmurs, rub or gallop ABD: Non-distended; non-tender, soft,without rigidity, rebound or guarding SKIN: Normal for age and race; warm and dry; no apparent lesions EXTREMITIES: Pulses are 2 plus and equal times 4 extremities, peripheral edema is present bilateral lower extremities 1+ pitting. Tenderness to palpation bilateral anterior knees, worse with flexion - General Limitations: no limitations General appearance: alert, in no apparent distress Course Vital Signs Temperature 97.8 F 08/20/17 17:52 Pulse Rate 97 08/20/17 17:52 Respiratory Rate 08/20/17 17:52 Blood Pressure 129/85 08/20/17 17:52 O2 Sat by Pulse Oximetry 08/20/17 17:52 Temperature 97.7 F 08/20/17 23:32 Pulse Rate 88 08/20/17 23:32 Respiratory Rate 17 08/20/17 23:32 Blood Pressure 122/80 08/20/17 23:32 O2 Sat by Pulse Oximetry 93 08/20/17 23:32 Oxygen Delivery Oxygen Delivery Room Air Medical Decision Making - MDM Narrative Medical decision making narrative: 57-year-old patient with renal disease and recent medication noncompliance with Lasix [place] of bilateral lower extremity edema, but on exam has edema of the upper extremities, abdomen and legs. Patient also has bibasilar rales on auscultation concerning for fluid overload with pleural effusion. Patient may have had a seizure today, possibly from increasing blood toxins from uremia that can lead to toxic metabolic encephalopathy. Ordered BMP to evaluate for possible azotemia, LISA, and renal failure. Ordered BNP, troponin and CBC for possible heart failure and ACS. Ordered Keppra blood level to evaluate if patient had therapeutic index given history of possible recent seizure. Patient's labs showed no abnormalities at this time. BUN and creatinine are unremarkable for elevations. Patient's BNP is negative, the patient is started on Lasix 40 mg IV. Luckily patient's lab values are looking good and patient is not in acute renal failure. However, the patient is still symptomatic with shortness of breath secondary to third spacing of body fluid that will require further diuresis. Patient will be admitted for continued diuresis. Patient understands and accepts decision for admission. Dr. Roach the hospitalist has accepted the patient for admission - Lab Data Lab results reviewed: Yes I reviewed the patient's lab results. Lab results narrative: Short CBC 08/20/17 Range/Units 18:44 WBC 7.7 (4.3-11.1) K/mcL Hgb 14.7 (12.9-16.9) g/dL Hct 43.0 (37.5-50.1) % Plt Count 208 (140-400) K/mcL Neutrophils # 4.2 (1.6-8.9) K/mcL BMP 08/20/17 Range/Units 18:44 Sodium 136 (136-145) mEq/L Potassium 3.8 (3.5-5.1) mEq/L Chloride 103 (98-107) mEq/L Carbon Dioxide 24 (23-29) mEq/L BUN 17 (6-20) mg/dL Creatinine 1.15 (0.70-1.30) mg/dL Glucose 112 H (70-105) mg/dL Calcium 8.9 (8.6-10.3) mg/dL Cardiac Enzymes 08/20/17 Range/Units 18:44 Troponin I < 0.03 (< 0.04) ng/mL Result diagrams: 08/20/17 18:44 08/20/17 18:44 Lab Results 08/20/17 08/20/17 08/20/17 Range/Units 18:44 18:44 18:44 WBC 7.7 (4.3-11.1) K/mcL RBC 4.72 (4.19-5.50) M/mcL Hgb 14.7 (12.9-16.9) g/dL Hct 43.0 (37.5-50.1) % MCV 91.1 (83.0-100.0) fL MCH 31.1 (28.0-33.3) pg MCHC 34.2 (31.6-35.5) g/dL RDW 12.9 (11.5-14.5) % Plt Count 208 (140-400) K/mcL MPV 11.1 (9.4-12.4) fL Immature Gran % 0.8 (0-4) % Seg Neutrophils % 54.5 % Lymphocytes % 33.6 % Monocytes % 9.4 % Eosinophils % 0.9 % Basophils % 0.8 % Neutrophils # 4.2 (1.6-8.9) K/mcL Lymphocytes # 2.6 (0.6-4.6) K/mcL Monocytes # 0.7 (0.0-1.3) K/mcL Eosinophils # 0.1 (0.0-0.6) K/mcL Basophils # 0.1 (0.0-0.2) K/mcL Sodium 136 (136-145) mEq/L Potassium 3.8 (3.5-5.1) mEq/L Chloride 103 (98-107) mEq/L Carbon Dioxide 24 (23-29) mEq/L BUN 17 (6-20) mg/dL Creatinine 1.15 (0.70-1.30) mg/dL Est GFR ( Amer) > 60 (> 60) Est GFR (Non-Af Amer) > 60 (> 60) BUN/Creatinine Ratio 15 (6-26) Glucose 112 H (70-105) mg/dL Calculated Osmolality 284 (280-300) Calcium 8.9 (8.6-10.3) mg/dL Troponin I < 0.03 (< 0.04) ng/mL B-Natriuretic Peptide (Less than 100) pg/mL 08/20/17 Range/Units 18:44 WBC (4.3-11.1) K/mcL RBC (4.19-5.50) M/mcL Hgb (12.9-16.9) g/dL Hct (37.5-50.1) % MCV (83.0-100.0) fL MCH (28.0-33.3) pg MCHC (31.6-35.5) g/dL RDW (11.5-14.5) % Plt Count (140-400) K/mcL MPV (9.4-12.4) fL Immature Gran % (0-4) % Seg Neutrophils % % Lymphocytes % % Monocytes % % Eosinophils % % Basophils % % Neutrophils # (1.6-8.9) K/mcL Lymphocytes # (0.6-4.6) K/mcL Monocytes # (0.0-1.3) K/mcL Eosinophils # (0.0-0.6) K/mcL Basophils # (0.0-0.2) K/mcL Sodium (136-145) mEq/L Potassium (3.5-5.1) mEq/L Chloride (98-107) mEq/L Carbon Dioxide (23-29) mEq/L BUN (6-20) mg/dL Creatinine (0.70-1.30) mg/dL Est GFR ( Amer) (> 60) Est GFR (Non-Af Amer) (> 60) BUN/Creatinine Ratio (6-26) Glucose (70-105) mg/dL Calculated Osmolality (280-300) Calcium (8.6-10.3) mg/dL Troponin I (< 0.04) ng/mL B-Natriuretic Peptide 7 (Less than 100) pg/mL Attestation Statement - Attestation Attestation: I examined this patient and my medical decision-making was reviewed with the Resident Physician. I agree with the documented findings, disposition and treatment plan as described except to the extent set forth below. Patient to the ED putting a swelling. Patient is a 30 pound weight gain. Swelling up to his knees. Swelling in his abdomen. Short of breath. Patient is been out of his water pill for 4 days. He also has a history of renal failure. On examination he has 3+ pitting edema to his knees. No erythema. Symmetric. Lungs diminished but clear. Plan. CHF workup. IV Lasix. Likely admission for diuresis.
[2017-08-20 18:58] LABS: Basophils # 0.1 K/mcL (0.0-0.2); Basophils % 0.8 %; Eosinophils # 0.1 K/mcL (0.0-0.6); Eosinophils % 0.9 %; Hemoglobin 14.7 g/dL (12.9-16.9); Immature Granulocytes % 0.8 % (0-4); Lymphocytes # 2.6 K/mcL (0.6-4.6); Lymphocytes % 33.6 %; Mean Corpuscular HGB Conc 34.2 g/dL (31.6-35.5); Mean Corpuscular Hemoglobin 31.1 pg (28.0-33.3); Mean Corpuscular Volume 91.1 fL (83.0-100.0); Mean Platelet Volume 11.1 fL (9.4-12.4); Monocytes # 0.7 K/mcL (0.0-1.3); Monocytes % 9.4 %; Neutrophils # 4.2 K/mcL (1.6-8.9); Platelet Count 208 K/mcL (140-400); Red Blood Count 4.72 M/mcL (4.19-5.50); Red Cell Distribution Width 12.9 % (11.5-14.5); Segmented Neutrophils % 54.5 %
[2017-08-20 19:17] LABS: BUN/Creatinine Ratio 15 (6-26); Blood Urea Nitrogen 17 mg/dL (6-20); Calcium 8.9 mg/dL (8.6-10.3); Carbon Dioxide 24 mEq/L (23-29); Chloride 103 mEq/L (98-107); Glucose 112 mg/dL (70-105); Osmolality,Calculated 284 (280-300); Potassium 3.8 mEq/L (3.5-5.1); Sodium 136 mEq/L (136-145); eGFR For African Americans > 60 (> 60); eGFR For Non-African Americans > 60 (> 60)
[2017-08-20] MEDS ORDERED: *HR* OxyCODONE Immed Rel 5 MG TABLET PO ONE (19:47)
--- NOTE | 2017-08-20 21:26 | Internal Med History&Physical ---
Date of Encounter: 08/20/17 Time of Encounter: 20:00 Assessment and Plan (1) Bilateral lower extremity edema Current visit: Yes Status: Acute -Patient reports increased lower extremity swelling in the last month in addition to his 30 pound weight gain over the last 3 months. -Patient reports that he has a history of stage III chronic kidney disease and follows with nephrology, Dr. Tavarez, who prescribes his furosemide 20 mg daily and at night as needed. -Patient reports running out of his Lasix approximately 5 days ago. -Will treat patient with IV Lasix 20 mg twice daily -Will consult nephrology and appreciate recommendations -Will also order echocardiogram (2) Seizure Current visit: No Status: Acute -Patient reports that sister was concern that patient was having a seizure while at fast food restaurant in [place]. -Patient states that his sister reported that he had generalized shaking. -He is managed by neurology, Dr. Guzman on Keppra for seizures. -Will consult neurology and appreciate recommendations (3) Essential hypertension Current visit: No Status: Chronic -Controlled; continue home medications (4) Obesity, Class II, BMI 35-39.9, with comorbidity Current visit: No Status: Acute -Lifestyle modifications (5) DVT prophylaxis Current visit: No Status: Acute -Subcutaneous heparin Internal Medicine - H&P: HPI Chief complaint: Increased lower extremity edema and weight gain History of present illness: Patient is a 57-year-old male with past medical history significant for seizures , CKD stage 3 and HTN, who presents to the ER on 08/20/17 due to increased lower extremity swelling and weight gain in addition to suspected seizure activity. Patient reports that sister, who is not present at bedside, was concern that patient was having a seizure while at fast food restaurant in [place]. Patient states that his sister reported that he had generalized shaking. He is managed by neurology, Dr. Guzman on Keppra for seizures. Patient is concerned about his increased lower extremity swelling in the last month in addition to his 30 pound weight gain over the last 3 months. Patient reports that he has a history of stage III chronic kidney disease and follows with nephrology, Dr. Tavarez, who prescribes his furosemide 20 mg daily and at night as needed. Patient reports running out of his Lasix approximately 5 days ago. He denies any heart failure history. Past Med Surg Social Fam HX - Past Medical History Medical history: hypertension, renal disease, seizures Psychiatric history: anxiety - Past Surgical History Surgical History: no surgical history - Social History Smoking Status: Never smoker Smokeless Tobacco Status: No Alcohol use: none Drug use: none - Family History Sister Living Status: Still Living Internal Medicine - H&P: Meds Alprazolam [Xanax] 1 mg PO TID 01/07/16 [History] Atenolol [Tenormin] 25 mg PO DAILY 04/15/16 [History] Omeprazole 20 mg PO DAILY #30 tablet. 04/16/16 [Rx] LevETIRAcetam [Keppra] 500 mg PO TID 03/10/17 [History] Pregabalin [Lyrica] 75 mg PO DAILY 03/10/17 [History] Furosemide [Lasix] 20 mg PO QAM 08/20/17 [History] Furosemide [Lasix] 20 mg PO QPM PRN 08/20/17 [History] Hydralazine HCl 100 mg PO TID 08/20/17 [History] Quetiapine Fumarate [Seroquel] 50 mg PO HS 08/20/17 [History] 3 Allergy/AdvReac Type Severity Reaction Status Date / Time No Known Allergies Allergy Verified 08/20/17 17:55 All Systems PM: A 10-system review of systems was performed and is negative for pertinent findings except as documented above in the HPI. - Constitutional Vitals: Temp Pulse Resp BP Pulse Ox 97.8 F 97 16 132/80 97 08/20/17 17:52 08/20/17 17:52 08/20/17 21:07 08/20/17 21:07 08/20/17 17:52 General appearance: Present: A&O X 3, no acute distress - Eye Eye exam: Present: normal appearance - ENT ENT exam: Present: mucous membranes moist - Respiratory Respiratory exam: Present: CTAB. Absent: accessory muscle use, rales, rhonchi, wheezes - Cardiovascular Cardiovascular exam: Present: RRR, +S1, +S2. Absent: diastolic murmur, gallop, rubs, systolic murmur - GI/Abdominal GI/Abdominal exam: Present: distended - Expanded Lower Extremities Exam Lower Leg exam: Present: swelling Ankle exam: Present: swelling - Neurological Exam Neurological exam: Present: oriented X3 - Psychiatric Psychiatric exam: Present: normal mood - Skin Skin exam: Present: normal color Internal Med - H&P Results - Labs CBC & Chem 7: 08/20/17 18:44 08/20/17 18:44
[2017-08-20] MEDS ORDERED: Naloxone 0.4 MG/ML INJ IVP PRN (21:44)
[2017-08-20] MEDS: *HR* Heparin 5,000 UNIT/ML VIAL SQ SCH (22:36)
[2017-08-20] MEDS: levETIRAcetam 250 MG TABLET PO SCH (22:36)
[2017-08-20] MEDS: ALPRAZolam 1 MG TABLET PO SCH (22:36)
[2017-08-21 04:48] LABS: Basophils # 0.1 K/mcL (0.0-0.2); Basophils % 0.8 %; Eosinophils # 0.1 K/mcL (0.0-0.6); Eosinophils % 1.3 %; Hematocrit 41.3 % (37.5-50.1); Hemoglobin 14.2 g/dL (12.9-16.9); Immature Granulocytes % 0.5 % (0-4); Lymphocytes # 2.9 K/mcL (0.6-4.6); Lymphocytes % 33.2 %; Mean Corpuscular HGB Conc 34.4 g/dL (31.6-35.5); Mean Corpuscular Hemoglobin 31.5 pg (28.0-33.3); Mean Corpuscular Volume 91.6 fL (83.0-100.0); Mean Platelet Volume 11.4 fL (9.4-12.4); Monocytes # 0.9 K/mcL (0.0-1.3); Monocytes % 10.5 %; Neutrophils # 4.6 K/mcL (1.6-8.9); Platelet Count 198 K/mcL (140-400); Red Blood Count 4.51 M/mcL (4.19-5.50); Segmented Neutrophils % 53.7 %
[2017-08-21 05:01] LABS: BUN/Creatinine Ratio 16 (6-26); Blood Urea Nitrogen 19 mg/dL (6-20); Calcium 8.7 mg/dL (8.6-10.3); Carbon Dioxide 25 mEq/L (23-29); Chloride 102 mEq/L (98-107); Glucose 151 mg/dL (70-105); Osmolality,Calculated 289 (280-300); Potassium 3.9 mEq/L (3.5-5.1); Sodium 137 mEq/L (136-145); eGFR For African Americans > 60 (> 60); eGFR For Non-African Americans > 60 (> 60)
[2017-08-21] MEDS: *HR* Heparin 5,000 UNIT/ML VIAL SQ SCH ×3 (05:41→20:38)
[2017-08-21] MEDS: ALPRAZolam 1 MG TABLET PO SCH ×3 (08:09→20:38)
[2017-08-21] MEDS: Pregabalin 75 MG CAPSULE PO SCH (08:09)
[2017-08-21] MEDS: Furosemide 20 MG/2 ML VIAL IVP SCH ×2 (08:09→17:10)
[2017-08-21] MEDS: levETIRAcetam 250 MG TABLET PO SCH ×3 (08:09→20:37)
[2017-08-21] MEDS: hydrALAZINE 25 MG TABLET PO SCH ×3 (08:09→20:36)
[2017-08-21] MEDS ORDERED: levETIRAcetam 250 MG TABLET PO SCH (09:00)
[2017-08-21] MEDS ORDERED: ALPRAZolam 1 MG TABLET PO SCH (09:00)
[2017-08-21] MEDS ORDERED: Acetaminophen 325 MG TABLET PO PRN (10:13)
--- NOTE | 2017-08-21 10:56 | Neurology - Consult Note ---
<Taiwo Vuong - Last Filed: 08/21/17 16:14> Date of Encounter: 08/21/17 Time of Encounter: 10:45 Assessment and Plan (1) Seizure Current Visit: No Status: Chronic Patient may have experienced a complex partial seizure event however it is difficult to explain his diffuse weakness. Patient reports compliance with his antiepileptic drug regimen and denies any nausea or vomiting that would inhibit oral absorption of his medications. Keppra level is pending. Meantime recommend continuing his Keppra as current dose and monitoring further seizure activity. We will obtain EEG. Further workup for underlying medical conditions who presented seizure certainly warranted and will defer further workup to hospitalist team and nephrology. Will order UA. Further recommendations pending results of the patient's Keppra level. History of Present Illness Chief complaint: Seizure activity HPI: Mr. Morgan is a 57 year old male with history of seizure disorder who presents with the chief complaint of lower extremity pain and swelling. Neurology was consulted due to concerns for seizure-like activity prior to arrival. The patient states that he was in line at a restaurant in had an episode of mild shaking in the unsteadiness on his feet. This is reported from his sister as the patient does not remember this event. He states it lasted about a minute and then he remembers sitting at the restaurant. He states he felt weak and confused after this event for about an hour. He was able to eat his meal after this episode. He denies tongue biting or urinary incontinence. He states he had his first seizure about a year and a half ago after a fall and hitting his head. He has been on Keppra since then. He reports his most recent seizure was about 6 months ago. He reports compliance with his medication regimen and denies any nausea or vomiting or inability to keep his medication down. Past Med Surg Social Fam HX - Past Medical History Medical history: hypertension, renal disease, seizures Psychiatric history: anxiety - Past Surgical History Surgical History: no surgical history - Social History Smoking Status: Never smoker Smokeless Tobacco Status: No Alcohol use: none Drug use: none - Family History Sister Living Status: Still Living Grandfather Living Status: Hx Family Neurologic Disorders: Yes (Stroke) Medications and Allergies Alprazolam [Xanax] 1 mg PO TID 01/07/16 [History] Atenolol [Tenormin] 25 mg PO DAILY 04/15/16 [History] Omeprazole 20 mg PO DAILY #30 tablet. 04/16/16 [Rx] LevETIRAcetam [Keppra] 500 mg PO TID 03/10/17 [History] Pregabalin [Lyrica] 75 mg PO DAILY 03/10/17 [History] Furosemide [Lasix] 20 mg PO QAM 08/20/17 [History] Furosemide [Lasix] 20 mg PO QPM PRN 08/20/17 [History] Hydralazine HCl 100 mg PO TID 08/20/17 [History] Quetiapine Fumarate [Seroquel] 50 mg PO HS 08/20/17 [History] 3 Allergy/AdvReac Type Severity Reaction Status Date / Time No Known Allergies Allergy Verified 08/20/17 17:55 All Systems: A 10-system review of systems was performed and is negative for pertinent findings except as documented above in the HPI. Physical Examination - Vital Signs Vital Signs: Initial Vital Signs Temp Pulse Resp BP Pulse Ox 97.8 F 97 22 129/85 97 08/20/17 17:52 08/20/17 17:52 08/20/17 17:52 08/20/17 17:52 08/20/17 17:52 - Constitutional General appearance: comfortable - Neurologic Sensorimotor examination: intact Motor examination - right side: 4/5: deltoids, biceps, triceps, wrist flexion, wrist extension, food and beverage controller, hip flexors, tibialis Anterior, quadriceps, toe extension (EHL), plantarflexion Motor examination - left side: 4/5: deltoids, biceps, triceps, wrist flexion, wrist extension, hip flexors, food and beverage controller, quadriceps, tibialis Anterior, toe extension (EHL), plantarflexion Detailed sensory examination: intact Reflexes: Biceps: 1+, Brachioradialis: 1+, Patella: 1+, Achilles: 1+ Mental Status Examination: awake, alert, oriented to person, oriented to place, oriented to time, follows commands appropriately, answers questions appropriately, no agnosia, no aphasia, no aproxia Cranial nerve examination: PERRL, EOMI, sensory to face intact, mastication intact, no facial asymmetry is present, no dysarthria, flexes SCM and trapezius muscles symmetrically with full power, tongue protrudes midline, no atrophy or facial fasiculations present Results - Laboratory Findings CBC and BMP: 08/21/17 03:41 08/21/17 03:41 Abnormal lab findings: Abnormal lab results Glucose 151 mg/dL (70-105) H 08/21/17 03:41 Consult Discharge Plan - Plan Referrals: Joe Harkins, PAC [Primary Care Provider] - <Taiwo Perez - Last Filed: 08/21/17 17:30> Date of Encounter: 08/21/17 Time of Encounter: 17:27 Assessment and Plan (1) Seizure Current Visit: No Status: Chronic Patient was seen and examined, I agree with the statement Dr. Elam has provided above. Further recommendations will be made pending the EEG results and the Keppra level. History of Present Illness HPI: Chart was reviewed, the patient was seen and examined independently. I did review Dr. Guzman's records from [facility]. I agree with the history provided by Dr. Vuong as stated above. All Systems: A 10-system review of systems was performed and is negative for pertinent findings except as documented above in the HPI. Physical Examination - Vital Signs Vital Signs: Initial Vital Signs Temp Pulse Resp BP Pulse Ox 97.8 F 97 22 129/85 97 08/20/17 17:52 08/20/17 17:52 08/20/17 17:52 08/20/17 17:52 08/20/17 17:52 Results - Laboratory Findings CBC and BMP: 08/21/17 03:41 08/21/17 03:41 Abnormal lab findings: Abnormal lab results Glucose 151 mg/dL (70-105) H 08/21/17 03:41
[2017-08-21] MEDS: *HR* HYDROcodone/Acet 5/325 mg TABLET PO PRN ×2 (10:59→17:10)
--- NOTE | 2017-08-21 12:17 | Nephrology Consult Note ---
<Ely Murphy - Last Filed: 08/21/17 12:23> Date of Encounter: 08/21/17 Time of Encounter: 12:15 Assessment and Plan (1) Bilateral lower extremity edema Status: Acute Agree with restarting Lasix Will get a UA, protein/creatinine ratio. Strict I/Os Low sodium diet Fluid restriction of 1.5 liters/day 500ml UOP today (2) CKD (chronic kidney disease) stage 3, GFR 30-59 ml/min Status: Acute Reported CKD stage 3 however kidney function is WNL at this time (3) Seizure disorder Status: Chronic per neurology team History of Present Illness - Reason for Consult Consult date: 08/21/17 - Chief Complaint Bilat lower extremity edema - History of Present Illness Mr Morgan is a 57-year-old male with past medical history significant for seizures , CKD stage 3 and HTN, who presents to the ER on 08/20/17 due to increased lower extremity swelling and weight gain in addition to suspected seizure activity. He is managed by neurology, Dr. Guzman, on Keppra for seizure. Patient is concerned about his increased lower extremity swelling in the last month in addition to his 30 pound weight gain over the last 3 months. Patient reports that he has a history of stage III chronic kidney disease and follows with nephrology, Dr. Tavarez, who prescribes his furosemide 20 mg daily and at night as needed. Patient reports running out of his Lasix approximately 5 days ago but also states he has had increase bilat leg swelling even before he ran out of Lasix. Past Med Surg Social Fam HX - Past Medical History Medical history: hypertension, renal disease, seizures Psychiatric history: anxiety - Past Surgical History Surgical History: no surgical history - Social History Smoking Status: Never smoker Smokeless Tobacco Status: No Alcohol use: none Drug use: none - Family History Sister Living Status: Still Living Grandfather Living Status: Hx Family Neurologic Disorders: Yes (Stroke) Medications and Allergies Alprazolam [Xanax] 1 mg PO TID 01/07/16 [History] Atenolol [Tenormin] 25 mg PO DAILY 04/15/16 [History] Omeprazole 20 mg PO DAILY #30 tablet. 04/16/16 [Rx] LevETIRAcetam [Keppra] 500 mg PO TID 03/10/17 [History] Pregabalin [Lyrica] 75 mg PO DAILY 03/10/17 [History] Furosemide [Lasix] 20 mg PO QPM PRN 08/20/17 [History] Hydralazine HCl 100 mg PO TID 08/20/17 [History] Quetiapine Fumarate [Seroquel] 50 mg PO HS 08/20/17 [History] Furosemide [Lasix] 20 mg PO BID #60 tablet 08/24/17 [Rx] 3 Allergy/AdvReac Type Severity Reaction Status Date / Time No Known Allergies Allergy Verified 08/20/17 17:55 Review of Systems All Systems: reviewed and no additional remarkable complaints except as stated Constitutional: malaise, no fever(s) Cardiovascular: leg edema, no chest pain Gastrointestinal: no abdominal pain, no vomiting Neurological: other (seizure activity) Psychiatric: no behavioral changes Exam - Vital Signs Vital signs: Initial Vital Signs Temp Pulse Resp BP Pulse Ox 97.8 F 97 22 129/85 97 08/20/17 17:52 08/20/17 17:52 08/20/17 17:52 08/20/17 17:52 08/20/17 17:52 Vital Signs - Last 8 Hours Temp Pulse Resp BP Pulse Ox 08/21/17 11:04 98.1 F 83 16 130/87 94 08/21/17 07:21 97.3 F L 95 16 137/87 95 Intake and Output 08/20/17 08/21/17 08/21/17 23:59 07:59 15:59 Intake Total 0 / 0 500 / 500 Output Total 120 / 120 400 / 400 525 / 525 Balance -120 / -120 100 / 100 -525 / -525 Intake: Oral 0 / 0 500 / 500 Output: Urine 120 / 120 400 / 400 525 / 525 Other: Meal water pitcher # Voids 1 - General Appearance General appearance: well-developed, well-nourished, obese EENT: ATNC, mucous membranes moist, hearing intact, vision intact Neck: supple Respiratory: clear Cardiology: edema, normal S1, normal S2 Gastrointestinal: no guarding, obese Integumentary: warm and dry Neurologic: alert and oriented x3 Psychiatric: mood/affect appropriate (but anxious), cooperative Results - Lab Results 08/21/17 03:41 08/21/17 03:41 Most recent lab results Calcium 8.7 mg/dL (8.6-10.3) 08/21/17 03:41 Consult Discharge Plan - Plan Instructions: Influenza Virus Vaccine (Injection), Acute Kidney Injury (DC), Depression (DC), Gastroenteritis (DC), Chronic Hypertension (DC), Anemia (GEN) Referrals: Rehan Tavarez DO [Partnered Physician] - Tammie Guzman MD [Partnered Physician] - Joe Harkins PAC [Primary Care Provider] - Prescriptions: Furosemide [Lasix] 20 mg PO BID #60 tablet <ChicolondonvictoriabijansylEnid Silverman - Last Filed: 08/28/17 15:53> Date of Encounter: 08/21/17 Exam - Vital Signs Vital signs: Initial Vital Signs Temp Pulse Resp BP Pulse Ox 97.8 F 97 22 129/85 97 08/20/17 17:52 08/20/17 17:52 08/20/17 17:52 08/20/17 17:52 08/20/17 17:52 Results - Lab Results 08/22/17 03:49 08/23/17 02:32 Most recent lab results Calcium 8.7 mg/dL (8.6-10.3) 08/23/17 02:32 Urine Creatinine 83 mg/dL 08/21/17 12:10 Urine Total Protein < 4 mg/dL 08/21/17 12:10 - Attending Attestation I examined this patient and my medical decision-making was reviewed with the Resident Physician/CELL MAKER. I agree with the documented findings, disposition and treatment plan as described except to the extent set forth below. Pt seen and examined with priscilage 2/3 CKD (follows with my associate Dr Tavarez) admitted with LE edema and weight gain. Renal consulted for diuretic management and overall workup regarding his edema. Will check urine for proteinuria. Continue current diuretic regimen, pt appears to be responding well. Renal functional actually quite good with GFR >60. suspect etiology of edema not renal. Will follow with you.
[2017-08-21 12:32] LABS: Bilirubin,Urine Negative (Negative); Blood,Urine Negative (Negative); Clarity,Urine Clear (Clear); Color,Urine Yellow (Yellow); Glucose,Urine (UA) Normal (Normal); Ketones,Urine Negative (Negative); Leukocyte Esterase,Urine Negative (Negative); Nitrite,Urine Negative (Negative); Protein,Urine Negative (Neg-Trace); Specific Gravity,Urine 1.015 (1.010-1.025); Urobilinogen,Urine Normal (Normal)
[2017-08-21 15:25] LABS: Creatinine,Urine 83 mg/dL
--- NOTE | 2017-08-21 19:14 | Internal Med Progress Note ---
Date of Encounter: 08/21/17 Time of Encounter: 10:00 - Assessment and plan (1) Bilateral lower extremity edema Current Visit: Yes Status: Acute Assessment and plan: 1 patient has been on Lasix and recently has not been taking it for the past 5 days most likely contributing to his lower extremity edema We will continue with Lasix Her intake output Daily weights Fluid restriction We will check cardiac echo (2) CKD (chronic kidney disease) stage 3, GFR 30-59 ml/min Current Visit: Yes Status: Acute Assessment and plan: History of CK D stage III presently creatinine is stable at 1.19 we will continue to monitor Avoid nephrotoxins Monitor intake output daily weights (3) History of seizures Current Visit: Yes Status: Acute Assessment and plan: Patient admits that he does have history of seizure activity. He is presently AT this time. She has been compliant with medications. He has had some witnessed seizures by his sister. Most recent was he says a few weeks ago. We will continue with his Keppra at this time Neurology has been consulted and appreciate recommendations Seizure precautions (4) DVT prophylaxis Current Visit: No Status: Acute Assessment and plan: Heparin subcutaneous - Time Spent With Patient less than 15 minutes - Subjective Interval history: Presently the patient denies any pain or discomfort. No seizure activity has been noted. He seemed stable at this time. - Constitutional Vitals: Temp Pulse Resp BP Pulse Ox 97.7 F 84 18 126/77 97 08/21/17 15:52 08/21/17 15:52 08/21/17 15:52 08/21/17 15:52 08/21/17 15:52 General appearance: Present: A&O X 3, no acute distress - Head Head exam: Present: atraumatic, normocephalic - Eye Eye exam: Present: PERRL, conjuntiva pink, sclera anicteric Pupils: Present: PERRL - Neck Neck exam general surgery: Present: supple, trachea midline. Absent: lymphadenopathy - Respiratory Respiratory exam: Present: CTAB. Absent: accessory muscle use, rales, rhonchi, wheezes - Cardiovascular Cardiovascular exam: Present: RRR, +S1, +S2. Absent: diastolic murmur, gallop, rubs, systolic murmur - GI/Abdominal GI/Abdominal exam: Present: normal bowel sounds, soft, no peritoneal signs. Absent: distended, tenderness - Extremities Exam Extremities exam: Present: warm, radial pulses palpable and symmetrical. Absent : calf tenderness, cyanotic, pedal edema - Neurological Exam Neurological exam: Present: CN II-XII intact, oriented X3, no focal deficits. Absent: pronater drift, facial droop, speech deficit - Skin Skin exam: Present: dry, intact Internal Medicine: Result - Labs CBC & Chem 7: 08/21/17 03:41 08/21/17 03:41 Labs: Short CBC 08/21/17 Range/Units 03:41 WBC 8.6 (4.3-11.1) K/mcL Hgb 14.2 (12.9-16.9) g/dL Hct 41.3 (37.5-50.1) % Plt Count 198 (140-400) K/mcL Neutrophils # 4.6 (1.6-8.9) K/mcL BMP 08/21/17 03:41 Sodium 137 Potassium 3.9 Chloride 102 Carbon Dioxide 25 BUN 19 Creatinine 1.19 Glucose 151 H Calcium 8.7 Urine 08/21/17 Range/Units 12:10 Urine Color Yellow (Yellow) Urine Clarity Clear (Clear) Urine pH 6.0 (5.0-8.0) pH Units Ur Specific [place] 1.015 (1.010-1.025) Urine Protein Negative (Neg-Trace) mg/dL Urine Glucose (UA) Normal (Normal) mg/dL - Impressions Impressions Echocardiogram 08/21/17 21:51 Impressions: LVEF 55%. Mild left ventricular diastolic dysfunction. Normal right ventricular structure and function. No significant valvular dysfunction. No pulmonary hypertension. Left Ventricular Wall Motion: Rest Echo Findings All wall segments showed normal motion. Findings: Study Quality * Technically adequate exam. ECG Findings * Normal sinus rhythm. Left Ventricle * LVEF 55%. * Mild left ventricular diastolic dysfunction. * Normal LV chamber size, wall thickness and function. Right Ventricle * Normal right ventricular structure and function. Left Atrium * Mildly dilated left atrium. Right Atrium * Normal right atrial size. Aortic Valve * No aortic regurgitation. * Trileaflet aortic valve. * No aortic stenosis. Mitral Valve * Normal mitral valve structure. * No mitral stenosis. * Trace mitral regurgitation. Tricuspid Valve * Tricuspid valve not well visualized. * No tricuspid regurgitation. Pulmonic Valve * Pulmonic valve is not well visualized. * No pulmonic stenosis. * Trace pulmonic regurgitation. Pulmonary Artery * Pulmonary artery not well visualized. Aorta * Normally sized aortic root. * Ascending aorta not well visualized. Pericardium * There is no pericardial effusion present. Interatrial Septum * No evidence of PFO by color Doppler. IVC * The IVC is not well evaluated. Consult Discharge Plan - Plan Referrals: Joe Harkins, PAC [Primary Care Provider] -
[2017-08-22 04:09] LABS: Hematocrit 43.9 % (37.5-50.1); Hemoglobin 14.5 g/dL (12.9-16.9); Mean Corpuscular Hemoglobin 30.5 pg (28.0-33.3); Mean Corpuscular Volume 92.2 fL (83.0-100.0); Mean Platelet Volume 11.5 fL (9.4-12.4); Platelet Count 216 K/mcL (140-400); Red Blood Count 4.76 M/mcL (4.19-5.50); Red Cell Distribution Width 12.9 % (11.5-14.5)
[2017-08-22 04:27] LABS: BUN/Creatinine Ratio 18 (6-26); Blood Urea Nitrogen 22 mg/dL (6-20); Carbon Dioxide 28 mEq/L (23-29); Chloride 103 mEq/L (98-107); Glucose 131 mg/dL (70-105); Sodium 139 mEq/L (136-145); eGFR For African Americans > 60 (> 60); eGFR For Non-African Americans > 60 (> 60)
[2017-08-22 04:28] LABS: Calcium 8.7 mg/dL (8.6-10.3); Osmolality,Calculated 293 (280-300)
[2017-08-22] MEDS: *HR* Heparin 5,000 UNIT/ML VIAL SQ SCH ×3 (06:06→20:28)
[2017-08-22] MEDS: Furosemide 20 MG/2 ML VIAL IVP SCH ×2 (08:32→16:37)
[2017-08-22] MEDS: Pregabalin 75 MG CAPSULE PO SCH (08:32)
[2017-08-22] MEDS: levETIRAcetam 250 MG TABLET PO SCH ×3 (08:32→20:26)
[2017-08-22] MEDS: hydrALAZINE 25 MG TABLET PO SCH ×3 (08:32→20:27)
[2017-08-22] MEDS: ALPRAZolam 1 MG TABLET PO SCH ×3 (08:32→20:27)
[2017-08-22] MEDS: *HR* HYDROcodone/Acet 5/325 mg TABLET PO PRN ×3 (08:33→20:27)
--- NOTE | 2017-08-22 13:22 | Internal Med Progress Note ---
Date of Encounter: 08/22/17 Time of Encounter: 13:20 - Assessment and plan (1) Bilateral lower extremity edema Current Visit: Yes Status: Acute Assessment and plan: 1 continue to have edema nonpitting We will continue with Lasix Her intake output Daily weights weight is up - 136 on admission-144 today questioning accuracy will recheck in a.m. Fluid restriction We will check cardiac echo-EF of 55% with mild diastolic dysfunction (2) CKD (chronic kidney disease) stage 3, GFR 30-59 ml/min Current Visit: Yes Status: Acute Assessment and plan: History of CK D stage III presently creatinine 1.23 we will continue to monitor Avoid nephrotoxins Monitor intake output daily weights nephrology consulted (3) History of seizures Current Visit: Yes Status: Acute Assessment and plan: Patient admits that he does have history of seizure activity. He is presently AT this time. She has been compliant with medications. He has had some witnessed seizures by his sister. Most recent was he says a few weeks ago. We will continue with his Keppra at this time Neurology has been consulted and appreciate recommendations- awaiting The levels as well as EEG results Seizure precautions (4) DVT prophylaxis Current Visit: No Status: Acute Assessment and plan: Heparin subcutaneous - Time Spent With Patient less than 15 minutes - Subjective Interval history: patient complains of constipation, does not feel that his swelling has improved very much. He denies any chest pain or shortness of breath no seizure activity at this time - Constitutional Vitals: Temp Pulse Resp BP Pulse Ox 98.0 F 95 16 114/72 95 08/22/17 13:15 08/22/17 13:15 08/22/17 13:15 08/22/17 13:15 08/22/17 13:15 General appearance: Present: A&O X 3, no acute distress - Head Head exam: Present: atraumatic, normocephalic - Eye Eye exam: Present: PERRL, conjuntiva pink, sclera anicteric Pupils: Present: PERRL - Neck Neck exam general surgery: Present: supple, trachea midline. Absent: lymphadenopathy - Respiratory Respiratory exam: Present: CTAB. Absent: accessory muscle use, rales, rhonchi, wheezes - Cardiovascular Cardiovascular exam: Present: RRR, +S1, +S2. Absent: diastolic murmur, gallop, rubs, systolic murmur - GI/Abdominal GI/Abdominal exam: Present: normal bowel sounds, soft, no peritoneal signs. Absent: distended, tenderness - Extremities Exam Extremities exam: Present: warm, radial pulses palpable and symmetrical. Absent : calf tenderness, cyanotic - Neurological Exam Neurological exam: Present: CN II-XII intact, oriented X3, no focal deficits. Absent: pronater drift, facial droop, speech deficit - Skin Skin exam: Present: dry, intact Internal Medicine: Result - Labs CBC & Chem 7: 08/22/17 03:49 08/22/17 03:49 Labs: Short CBC 08/22/17 Range/Units 03:49 WBC 7.5 (4.3-11.1) K/mcL Hgb 14.5 (12.9-16.9) g/dL Hct 43.9 (37.5-50.1) % Plt Count 216 (140-400) K/mcL BMP 08/22/17 03:49 Sodium 139 Potassium 4.0 Chloride 103 Carbon Dioxide 28 BUN 22 H Creatinine 1.23 Glucose 131 H Calcium 8.7 Consult Discharge Plan - Plan Referrals: Joe Harkins, PAC [Primary Care Provider] -
--- NOTE | 2017-08-22 15:13 | EEG/EMG/Oth Biometrics Report ---
EEG Procedure Report Date of procedure: 08/22/17 EEG Procedure: Routine EEG Procedure Note: This is a report of a 21 channel bipolar and referential montage EEG. A posterior dominant rhythm of 7-8 Hz moderate to low voltage mixed theta and alpha frequencies are identified symmetrically and posterior head regions. This rhythm reacts symmetrically to eye opening. There is no sleep architecture identified during the study. Hyperventilation is performed and does not alter the recording however the a and p technician noted poor effort. Photic stimulation is performed and does not produce a driving response. EKG rhythm strip reveals a bundle branch block with a rate of 96 beats per minute. Impressions: This EEG recording is abnormal and system with mild generalized abnormality and slowing. There is no evidence of epileptiform activity identified during the study. A left bundle branch block is also identified. Comment: Etiologies of this interpretation might include toxic, metabolic, postictal, or degenerative. Please correlate clinically.
--- NOTE | 2017-08-22 16:30 | Nephrology Progress Note ---
Date of Encounter: 08/22/17 Time of Encounter: 16:28 - Assessment and Plan (1) Anasarca associated with disorder of kidney Current Visit: Yes Status: Acute No urinary protein and eGFR greater than 60. Anasarca not secondary to kidney disease. Will sign off. Call if questions. (2) Bilateral lower extremity edema Current Visit: Yes Status: Acute Continue diuretics. (3) CKD (chronic kidney disease) stage 3, GFR 30-59 ml/min Current Visit: Yes Status: Acute Patient's eGFR is greater than 60. Renal function seems to have improved. Will sign off. Subjective Principal diagnosis: ckd Interval history: Patient seen. He complains of feeling swollen. No new complaints. Objective - Vital Signs Vital signs: Vital Signs Temp Pulse Resp BP Pulse Ox 08/22/17 13:15 98.0 F 95 16 114/72 95 08/22/17 07:24 97.6 F 79 16 136/79 96 08/22/17 03:38 97.7 F 91 18 112/77 94 08/21/17 23:25 98 F 89 18 110/75 96 08/21/17 20:05 98 F 86 18 120/74 96 Intake and Output 08/22/17 08/22/17 08/22/17 07:59 15:59 23:59 Intake Total 500 / 500 Output Total 525 / 525 Balance -25 / -25 Intake: Oral 500 / 500 Output: Urine 525 / 525 Other: Weight 144 kg Patient Weight 08/22/17 23:59 Weight 144 kg - General Appearance General appearance: Present: well-developed, well-nourished, obese EENT: Present: ATNC Neck: Present: supple Respiratory: Present: course breath sounds Cardiology: Present: edema (trace edema bilateral lower extremities. ), regular rate Integumentary: Present: warm and dry Neurologic: Present: alert and oriented x3 Psychiatric: Present: mood/affect appropriate - Lab 08/22/17 03:49 08/22/17 03:49 Most recent lab results Calcium 8.7 mg/dL (8.6-10.3) 08/22/17 03:49 Urine Creatinine 83 mg/dL 08/21/17 12:10 Urine Total Protein < 4 mg/dL 08/21/17 12:10 Consult Discharge Plan - Plan Referrals: Joe Harkins, PAC [Primary Care Provider] -
[2017-08-23 03:27] LABS: BUN/Creatinine Ratio 16 (6-26); Blood Urea Nitrogen 20 mg/dL (6-20); Calcium 8.7 mg/dL (8.6-10.3); Carbon Dioxide 29 mEq/L (23-29); Chloride 102 mEq/L (98-107); Glucose 141 mg/dL (70-105); Osmolality,Calculated 293 (280-300); Potassium 3.7 mEq/L (3.5-5.1); Sodium 139 mEq/L (136-145); eGFR For African Americans > 60 (> 60); eGFR For Non-African Americans 58 (> 60)
[2017-08-23] MEDS: *HR* HYDROcodone/Acet 5/325 mg TABLET PO PRN ×3 (05:29→19:48)
[2017-08-23] MEDS: *HR* Heparin 5,000 UNIT/ML VIAL SQ SCH ×3 (05:29→19:49)
[2017-08-23] MEDS: Furosemide 20 MG/2 ML VIAL IVP SCH ×2 (08:11→16:14)
[2017-08-23] MEDS: hydrALAZINE 25 MG TABLET PO SCH ×3 (08:11→19:48)
[2017-08-23] MEDS: Pregabalin 75 MG CAPSULE PO SCH (08:11)
[2017-08-23] MEDS: ALPRAZolam 1 MG TABLET PO SCH ×3 (08:12→19:48)
[2017-08-23] MEDS: levETIRAcetam 250 MG TABLET PO SCH ×3 (08:12→19:48)
--- NOTE | 2017-08-23 18:02 | Internal Med Progress Note ---
Date of Encounter: 08/23/17 Time of Encounter: 13:00 - Assessment and plan (1) Bilateral lower extremity edema Current Visit: Yes Status: Acute Assessment and plan: 1 edema improving We will continue with Lasix Her intake output Daily weights not recorded Fluid restriction Cardiac echo-EF of 55% with mild diastolic dysfunction (2) CKD (chronic kidney disease) stage 3, GFR 30-59 ml/min Current Visit: Yes Status: Acute Assessment and plan: History of CK D stage III presently creatinine 1.28 we will continue to monitor Avoid nephrotoxins Monitor intake output daily weights nephrology consulted appreciate recommendation (3) History of seizures Current Visit: Yes Status: Acute Assessment and plan: Patient admits that he does have history of seizure activity. He is presently AT this time. She has been compliant with medications. He has had some witnessed seizures by his sister. Most recent was he says a few weeks ago. We will continue with his Keppra at this time Neurology has been consulted and appreciate recommendations- awaiting Keppra levels EEG is abnormal awaiting for neurology's recommendations Seizure precautions (4) DVT prophylaxis Current Visit: No Status: Acute Assessment and plan: Heparin subcutaneous - Subjective Interval history: Patient is feeling better feels a swelling has improved some encourage patient to ambulate. No seizure activity noted constipation has improved denies any pain or discomfort at this time - Constitutional Vitals: Temp Pulse Resp BP Pulse Ox 98.2 F 96 17 99/60 95 08/23/17 17:25 08/23/17 17:25 08/23/17 17:25 08/23/17 17:25 08/23/17 17:25 General appearance: Present: A&O X 3, no acute distress - Head Head exam: Present: atraumatic, normocephalic - Eye Eye exam: Present: PERRL, conjuntiva pink, sclera anicteric Pupils: Present: PERRL - Neck Neck exam general surgery: Present: supple, trachea midline. Absent: lymphadenopathy - Respiratory Respiratory exam: Present: CTAB. Absent: accessory muscle use, rales, rhonchi, wheezes - Cardiovascular Cardiovascular exam: Present: RRR, +S1, +S2. Absent: diastolic murmur, gallop, rubs, systolic murmur - GI/Abdominal GI/Abdominal exam: Present: normal bowel sounds, soft, no peritoneal signs. Absent: distended, tenderness - Extremities Exam Extremities exam: Present: pedal edema, warm, radial pulses palpable and symmetrical. Absent: calf tenderness, cyanotic - Neurological Exam Neurological exam: Present: CN II-XII intact, oriented X3, no focal deficits. Absent: pronater drift, facial droop, speech deficit Internal Medicine: Result - Labs CBC & Chem 7: 08/22/17 03:49 08/23/17 02:32 Labs: BMP 08/23/17 02:32 Sodium 139 Potassium 3.7 Chloride 102 Carbon Dioxide 29 BUN 20 Creatinine 1.28 Glucose 141 H Calcium 8.7 Consult Discharge Plan - Plan Referrals: Joe Harkins, PAC [Primary Care Provider] -
[2017-08-24] MEDS: *HR* Heparin 5,000 UNIT/ML VIAL SQ SCH ×2 (06:08→13:49)
[2017-08-24] MEDS: *HR* HYDROcodone/Acet 5/325 mg TABLET PO PRN ×3 (06:14→13:49)
[2017-08-24] MEDS: levETIRAcetam 250 MG TABLET PO SCH ×2 (08:01→13:50)
[2017-08-24] MEDS: Furosemide 20 MG/2 ML VIAL IVP SCH (08:02)
[2017-08-24] MEDS: Pregabalin 75 MG CAPSULE PO SCH (08:02)
[2017-08-24] MEDS: hydrALAZINE 25 MG TABLET PO SCH ×2 (08:02→13:49)
[2017-08-24] MEDS: ALPRAZolam 1 MG TABLET PO SCH ×2 (08:02→13:50)
[2017-08-24 12:15] VITALS: BP 127/81
--- NOTE | 2017-08-24 14:13 | Discharge Summary ---
Date of Encounter: 08/24/17 Time of Encounter: 14:11 - Discharge Diagnosis (1) Bilateral lower extremity edema Priority: Primary Status: Acute Comments: 1 patient has been intrinsically increasing lower survey swelling in the last month he has had 30 pound weight gain over the last 3 months. He does have history CK D stage III he was prescribed Lasix 20 mg daily however he ran out of his prescription and had not been able to give her 5 days. Patient was initiated on IV Lasix twice a day his swelling has improved we will continue with Lasix at home (2) CKD (chronic kidney disease) stage 3, GFR 30-59 ml/min Priority: Secondary Status: Acute Comments: Patient was seen by nephrology due to increasing creatinine during diuresis. He is back around his baseline. He will follow up with nephrology as outpatient. (3) History of seizures Priority: Secondary Status: Acute Comments: She has history of seizures had increased seizure activity over the past few weeks which was witnessed by his sister. He normally is managed by neurology Dr. Guzman and is on Keppra for seizures. He was seen by neurology in-house EEG was completed and no changes and Keppra dose. I did discuss with Dr. Borges who advised patient to just follow-up as outpatient with Dr. Guzman. - Discharge Medications Home Medications: Alprazolam [Xanax] 1 mg PO TID 01/07/16 [History] Atenolol [Tenormin] 25 mg PO DAILY 04/15/16 [History] Omeprazole 20 mg PO DAILY #30 tablet. 04/16/16 [Rx] LevETIRAcetam [Keppra] 500 mg PO TID 03/10/17 [History] Pregabalin [Lyrica] 75 mg PO DAILY 03/10/17 [History] Furosemide [Lasix] 20 mg PO QAM 08/20/17 [History] Furosemide [Lasix] 20 mg PO QPM PRN 08/20/17 [History] Hydralazine HCl 100 mg PO TID 08/20/17 [History] Quetiapine Fumarate [Seroquel] 50 mg PO HS 08/20/17 [History] Allergies/Adverse Reactions: 3 Allergy/AdvReac Type Severity Reaction Status Date / Time No Known Allergies Allergy Verified 08/20/17 17:55 Procedures/tests Complete & Pending: Procedures Performed prior 72 hours Category Date Time Status EV echocardiogram Routine Y 08/21/17 21:51 Completed Date of admission: 08/20/17 20:44 Primary care physician: Joe Harkins Consults: 08/20/17 21:47 Consult to Nephrology [CONS] Routine Consulting Provider: [facility] Shantell/JETHRO/YOBANI/ACACIA Reason for Consult: Increased lower extremity edema and weight gain Call Completed: No Consult to Neurology [CONS] Routine Consulting Provider: [facility] Reason for Consult: Seizure-like activity Call Completed: No 08/22/17 10:07 Consult to Interpret Exam [CONS] Routine Consulting Provider: Taiwo Perez Consult to Interpret Exam: Interpret EEG Discharging clinician: Zhane De Jesus Anticipated date of discharge: 08/24/17 - Patient Status Disposition: Home, Self-Care Condition: Fair Overall status at discharge: patient is progressing back to baseline - Discharge Instructions Follow Up With: Joe Harkins, MICHAEL [Primary Care Provider] - Rehan Tavarez DO [Partnered Physician] - Tammie Guzman MD [Partnered Physician] - - Diet and Activity Activity: increase activity as tolerated Diet: low salt diet Hospital course: Mr. Morgan is a 57 year old male patient has past medical history for seizures CK D stage III and hypertension he presented to the ER with lower extremity swelling and weight gain as well as suspected increase in seizure activity. Patient had run out of his Lasix prescription and had not taken it for possibly 5 days. He was diuresed with 20 mg of Lasix twice a day lower extremity swelling has improved. He will has been seen by neurology concerning seizure activity and medications EEG was completed he will continue with his Breath and follow-up with Dr. Guzman as outpatient. Patient has been ambulating in the halls denies any chest pain or shortness of breath. I did review medications and patient has verbalized understanding he is to follow-up with neurology and primary care and continue his home medications as prescribed. He is hemodynamically stable and is ready for discharge - Time Spent with Patient Total time spent providing and/or coordinating discharge services: - Constitutional Vitals: Temp Pulse Resp BP Pulse Ox 98.1 F 73 17 127/81 94 08/24/17 12:14 08/24/17 12:14 08/24/17 12:14 08/24/17 12:14 08/24/17 06:37 General appearance: Present: A&O X 3, no acute distress - Head Head exam: Present: atraumatic, normocephalic - Eye Eye exam: Present: PERRL, conjuntiva pink, sclera anicteric Pupils: Present: PERRL - Neck Neck exam general surgery: Present: supple, trachea midline. Absent: lymphadenopathy - Respiratory Respiratory exam: Present: CTAB. Absent: accessory muscle use, rales, rhonchi, wheezes - Cardiovascular Cardiovascular exam: Present: RRR, +S1, +S2. Absent: diastolic murmur, gallop, rubs, systolic murmur - GI/Abdominal GI/Abdominal exam: Present: normal bowel sounds, soft, no peritoneal signs. Absent: distended, tenderness - Extremities Exam Extremities exam: Present: warm, radial pulses palpable and symmetrical. Absent : calf tenderness, cyanotic, pedal edema - Neurological Exam Neurological exam: Present: CN II-XII intact, oriented X3, no focal deficits. Absent: pronater drift, facial droop, speech deficit - Skin Skin exam: Present: dry, intact
== END 2017-08-24 16:45 | disposition home or self-care (01) ==
LOC: 3BNU 17:50 → EMEROO 17:50 → 3BNU 21:10
PROVIDERS: ADMIT Hospitalist; ATTEND Hospitalist

== ENCOUNTER 2020-08-30 14:04 | Observation (INO) ==
[2020-08-30] MEDS ORDERED: 0.9 % Sodium Chloride 1,000 ML IVC ONE ×3 (14:08→18:58)
[2020-08-30] MEDS ORDERED: Ondansetron 4 MG/2 ML VIAL IVP ONE (14:08)
[2020-08-30] MEDS ORDERED: Isovue-370 500 ML BOTTLE IVP ONE (14:12)
[2020-08-30 14:26] LABS: Hematocrit 46.4 % (37.5-50.1); Hemoglobin 16.1 g/dL (12.9-16.9); Mean Corpuscular HGB Conc 34.7 g/dL (31.6-35.5); Mean Corpuscular Hemoglobin 33.1 pg (28.0-33.3); Mean Corpuscular Volume 95.5 fL (83.0-100.0); Mean Platelet Volume 10.1 fL (9.4-12.4); Platelet Count 320 K/mcL (140-400); Red Blood Count 4.86 M/mcL (4.19-5.50); Red Cell Distribution Width 12.8 % (11.5-14.5); White Blood Count 13.6 K/mcL (4.3-11.1)
[2020-08-30 14:33] LABS: Prothrombin Time 12.1 Seconds (9.4-12.1)
[2020-08-30] MEDS ORDERED: *HR* LORazepam 2 MG/ML VIAL IVP ONE (14:34)
[2020-08-30 14:43] LABS: BUN/Creatinine Ratio 8 (6-26); Blood Urea Nitrogen 7 mg/dL (8-23); Calcium 9.6 mg/dL (8.6-10.3); Carbon Dioxide 15 mEq/L (23-29); Chloride 99 mEq/L (98-107); Glucose 109 mg/dL (70-105); Osmolality,Calculated 277 (280-300); Potassium 3.7 mEq/L (3.5-5.1); Sodium 134 mEq/L (136-145); eGFR For African Americans > 60 (> 60); eGFR For Non-African Americans > 60 (> 60)
[2020-08-30 14:45] LABS: Troponin I < 0.03 ng/mL (< 0.04)
[2020-08-30 16:17] LABS: Lipase 53 Units/L (11-82)
[2020-08-30 16:20] LABS: Bilirubin,Urine Negative (Negative); Blood,Urine Negative (Negative); Clarity,Urine Clear (Clear); Color,Urine Light-Yellow (Yellow); Glucose,Urine (UA) Normal (Normal); Ketones,Urine 40 mg/dL (Negative); Leukocyte Esterase,Urine Negative (Negative); Nitrite,Urine Negative (Negative); PH,Urine 5.5 pH Units (5.0-8.0); Protein,Urine Trace mg/dL (Neg-Trace); Specific Gravity,Urine > 1.030 (1.010-1.025); Urobilinogen,Urine Normal (Normal)
[2020-08-30 18:30] LABS: Albumin/Globulin Ratio 1.4 (1.1-2.2); Bilirubin,Direct 0.2 mg/dL (0.0-0.2); Bilirubin,Indirect 0.8 mg/dL (0.0-1.0); Globulin 2.9 g/dL (2.4-3.5); Total Protein 6.9 g/dL (6.4-8.9)
[2020-08-30] MEDS ORDERED: levETIRAcetam 1,000 MG in 0.9 % Sodium Chloride 100 ML IVPB STA (18:51)
[2020-08-30] MEDS ORDERED: *HR* LORazepam 2 MG/ML VIAL IVP PRN (18:57)
[2020-08-30 19:15] LABS: Magnesium 1.7 mg/dL (1.6-2.6)
[2020-08-30] MEDS ORDERED: Naloxone 0.4 MG/ML INJ IVP PRN (20:19)
[2020-08-30] MEDS ORDERED: tiZANidine 4 MG TABLET PO PRN (20:20)
[2020-08-30] MEDS: Ondansetron 4 MG/2 ML VIAL IVP PRN (21:16)
[2020-08-30] MEDS: OXcarbazepine 150 MG TABLET PO SCH (21:17)
[2020-08-30] MEDS: hydrALAZINE 25 MG TABLET PO SCH (21:17)
[2020-08-30] MEDS: ALPRAZolam 1 MG TABLET PO SCH (21:17)
[2020-08-30] MEDS: Gabapentin 300 MG CAPSULE PO SCH (21:17)
[2020-08-31 07:14] LABS: Basophils # 0.1 K/mcL (0.0-0.2); Basophils % 0.4 %; Eosinophils % 0.2 %; Hematocrit 42.4 % (37.5-50.1); Hemoglobin 14.2 g/dL (12.9-16.9); Immature Granulocytes % 0.6 % (0-4); Lymphocytes % 17.8 %; Mean Corpuscular HGB Conc 33.5 g/dL (31.6-35.5); Mean Corpuscular Hemoglobin 32.3 pg (28.0-33.3); Mean Corpuscular Volume 96.6 fL (83.0-100.0); Mean Platelet Volume 10.3 fL (9.4-12.4); Monocytes # 1.1 K/mcL (0.0-1.3); Monocytes % 9.6 %; Neutrophils # 8.1 K/mcL (1.6-8.9); Platelet Count 243 K/mcL (140-400); Red Blood Count 4.39 M/mcL (4.19-5.50); Red Cell Distribution Width 12.8 % (11.5-14.5); Segmented Neutrophils % 71.4 %; White Blood Count 11.3 K/mcL (4.3-11.1)
[2020-08-31 07:37] LABS: BUN/Creatinine Ratio 10 (6-26); Blood Urea Nitrogen 8 mg/dL (8-23); Carbon Dioxide 21 mEq/L (23-29); Chloride 104 mEq/L (98-107); Glucose 95 mg/dL (70-105); Osmolality,Calculated 280 (280-300); Potassium 3.8 mEq/L (3.5-5.1); Sodium 136 mEq/L (136-145); eGFR For African Americans > 60 (> 60); eGFR For Non-African Americans > 60 (> 60)
[2020-08-31] MEDS: OXcarbazepine 150 MG TABLET PO SCH (07:38)
[2020-08-31] MEDS: Gabapentin 300 MG CAPSULE PO SCH (07:38)
[2020-08-31] MEDS: ALPRAZolam 1 MG TABLET PO SCH (07:38)
[2020-08-31] MEDS: hydrALAZINE 25 MG TABLET PO SCH (07:39)
[2020-08-31] MEDS: Ondansetron 4 MG/2 ML VIAL IVP PRN (07:42)
[2020-08-31] MEDS ORDERED: Cholecalciferol (D-3) 1,000 UNIT (25MCG) TABLET PO SCH (09:00)
[2020-08-31] MEDS ORDERED: atenoloL 25 MG TABLET PO SCH (09:00)
[2020-08-31 11:14] LABS: Adenovirus Not Detected (Not Detect); Bordetella Pertussis Not Detected (Not Detect); Chlamydophila pneumoniae Not Detected (Not Detect); Coronavirus 229E Not Detected (Not Detect); Coronavirus HKU1 Not Detected (Not Detect); Coronavirus NL63 Not Detected (Not Detect); Coronavirus OC43 Not Detected (Not Detect); Human Metapneumovirus Not Detected (Not Detect); Human Rhinovirus/Enterovirus Not Detected (Not Detect); Influenza A Subtype 2009 H1 Not Detected (Not Detect); Influenza B Not Detected (Not Detect); Mycoplasma pneumoniae Not Detected (Not Detect); Parainfluenza Virus 1 Not Detected (Not Detect); Parainfluenza Virus 2 Not Detected (Not Detect); Parainfluenza Virus 3 Not Detected (Not Detect); Parainfluenza Virus 4 Not Detected (Not Detect); Respiratory Syncytial Virus Not Detected (Not Detect); SARS-CoV-2 Not Detected (Not Detect)
[2020-08-31 11:16] VITALS: BP 115/66
== END 2020-08-31 12:14 | disposition left against medical advice (07) ==
LOC: EMEROOARM 14:04 → 3BNU 14:04 → SUATTDRO 19:03 → 3BNU 20:03
PROVIDERS: ADMIT Internal Medicine; ATTEND Student in an Organized Health Care Education/Training Program

== ENCOUNTER 2020-08-31 19:12 | Observation (INO) ==
[2020-08-31] MEDS ORDERED: tiZANidine 4 MG TABLET PO PRN (21:36)
[2020-08-31] MEDS ORDERED: Naloxone 0.4 MG/ML INJ IVP PRN (21:38)
[2020-08-31] MEDS ORDERED: Acetaminophen 325 MG TABLET PO PRN (21:38)
[2020-08-31] MEDS: ALPRAZolam 1 MG TABLET PO SCH (22:21)
[2020-08-31] MEDS: levETIRAcetam 250 MG TABLET PO SCH (22:22)
[2020-08-31] MEDS: Gabapentin 300 MG CAPSULE PO SCH (22:22)
[2020-08-31] MEDS: OXcarbazepine 150 MG TABLET PO SCH (22:23)
[2020-09-01] MEDS ORDERED: Ondansetron 4 MG/2 ML VIAL IVP ONE (03:49)
[2020-09-01] MEDS ORDERED: *HR* Heparin 5,000 UNIT/ML VIAL SQ SCH (06:00)
[2020-09-01] MEDS: levETIRAcetam 250 MG TABLET PO SCH (07:42)
[2020-09-01] MEDS: Gabapentin 300 MG CAPSULE PO SCH (07:42)
[2020-09-01] MEDS: ALPRAZolam 1 MG TABLET PO SCH (07:42)
[2020-09-01] MEDS: OXcarbazepine 150 MG TABLET PO SCH (07:42)
[2020-09-01] MEDS ORDERED: Furosemide 20 MG TABLET PO SCH (09:00)
[2020-09-01] MEDS ORDERED: hydrALAZINE 25 MG TABLET PO SCH (09:00)
[2020-09-01] MEDS ORDERED: gemfibroziL 600 MG TABLET PO SCH (09:00)
[2020-09-01] MEDS ORDERED: atenoloL 25 MG TABLET PO SCH (09:00)
[2020-09-01] MEDS ORDERED: Cholecalciferol (D-3) 1,000 UNIT (25MCG) TABLET PO SCH (09:00)
[2020-09-01] MEDS ORDERED: *HR* LORazepam 2 MG/ML VIAL IVP PRN ×3 (10:55)
[2020-09-01] MEDS ORDERED: Folic Acid 1 MG TABLET PO SCH (11:00)
[2020-09-01] MEDS ORDERED: Thiamine (B-1) 500 MG in 0.9 % Sodium Chloride 50 ML IVPB SCH (11:15)
[2020-09-01 11:25] VITALS: BP 117/76
[2020-09-01] MEDS ORDERED: OXcarbazepine 150 MG TABLET PO SCH ×2 (21:00)
[2020-09-02] MEDS ORDERED: OXcarbazepine 150 MG TABLET PO SCH (09:00)
[2020-09-03] MEDS ORDERED: Thiamine (B-1) 250 MG in 0.9 % Sodium Chloride 50 ML IVPB SCH (09:00)
== END 2020-09-01 15:45 | disposition home or self-care (01) ==
LOC: EMEROOARM 19:12 → 3BNU 19:12 → SUATTDRO 21:01 → 3BNU 21:59
PROVIDERS: ADMIT Internal Medicine; ATTEND Internal Medicine

== ENCOUNTER 2021-01-09 06:58 | Inpatient (IN) ==
[2021-01-09] MEDS ORDERED: Isovue-370 500 ML BOTTLE IVP ONE (07:19)
[2021-01-09] MEDS ORDERED: Ondansetron 4 MG/2 ML VIAL IVP ONE (07:20)
[2021-01-09] MEDS ORDERED: 0.9 % Sodium Chloride 1,000 ML IVC ONE (07:20)
[2021-01-09] MEDS ORDERED: levETIRAcetam 1,000 MG in 0.9 % Sodium Chloride 100 ML IVPB STA (07:22)
[2021-01-09] MEDS ORDERED: Metoclopramide 10 MG/2 ML VIAL IVP ONE (07:26)
[2021-01-09 07:30] LABS: Basophils # 0.1 K/mcL (0.0-0.2); Basophils % 0.5 %; Hematocrit 47.5 % (37.5-50.1); Immature Granulocytes % 1.8 % (0-4); Lymphocytes # 1.5 K/mcL (0.6-4.6); Lymphocytes % 11.3 %; Mean Corpuscular HGB Conc 33.7 g/dL (31.6-35.5); Mean Corpuscular Hemoglobin 32.9 pg (28.0-33.3); Mean Corpuscular Volume 97.7 fL (83.0-100.0); Mean Platelet Volume 10.6 fL (9.4-12.4); Monocytes # 1.3 K/mcL (0.0-1.3); Monocytes % 10.2 %; Platelet Count 207 K/mcL (140-400); Red Blood Count 4.86 M/mcL (4.19-5.50); Segmented Neutrophils % 76.2 %; White Blood Count 13.1 K/mcL (4.3-11.1)
[2021-01-09 07:53] LABS: Alanine Aminotransferase 108 Units/L (7-52); Albumin 4.4 g/dL (3.5-5.7); Albumin/Globulin Ratio 1.3 (1.1-2.2); Alkaline Phosphatase 60 Units/L (34-104); Aspartate Amino Transferase 103 Units/L (13-39); BUN/Creatinine Ratio 7 (6-26); Bilirubin,Direct 0.3 mg/dL (0.0-0.2); Bilirubin,Indirect 0.9 mg/dL (0.0-1.0); Bilirubin,Total 1.2 mg/dL (0.3-1.0); Blood Urea Nitrogen 8 mg/dL (8-23); Calcium 9.4 mg/dL (8.6-10.3); Carbon Dioxide 17 mEq/L (23-29); Chloride 94 mEq/L (98-107); Globulin 3.3 g/dL (2.4-3.5); Glucose 256 mg/dL (70-105); Lipase 40 Units/L (11-82); Osmolality,Calculated 281 (280-300); Potassium 3.4 mEq/L (3.5-5.1); Sodium 132 mEq/L (136-145); Total Protein 7.7 g/dL (6.4-8.9); Troponin I < 0.03 ng/mL (< 0.04); eGFR For African Americans > 60 (> 60); eGFR For Non-African Americans > 60 (> 60)
[2021-01-09] MEDS ORDERED: Magnesium Sulfate 1 GM/102 ML PIGGYBACK IVPB STA (09:56)
[2021-01-09 10:03] LABS: Bilirubin,Urine Negative (Negative); Blood,Urine Trace (Negative); Clarity,Urine Ex.Turbid (Clear); Color,Urine Yellow (Yellow); Glucose,Urine (UA) 70 mg/dL (Normal); Ketones,Urine 20 mg/dL (Negative); Leukocyte Esterase,Urine Negative (Negative); Mucus,Urine Few per lpf (None-Few); Nitrite,Urine Negative (Negative); PH,Urine 5.5 pH Units (5.0-8.0); Protein,Urine 30 mg/dL (Neg-Trace); Specific Gravity,Urine > 1.030 (1.010-1.025); Squamous Epithelial Cell,Urine Few per hpf (None-Few); Urobilinogen,Urine Normal (Normal); WBC,Urine 0-3 per hpf (0-3)
[2021-01-09] MEDS ORDERED: OXcarbazepine 150 MG TABLET PO ONE (11:51)
[2021-01-09] MEDS ORDERED: *HR* LORazepam 2 MG/ML VIAL IVP ONE ×2 (11:58→13:59)
[2021-01-09] MEDS ORDERED: *HR* LORazepam 2 MG/ML VIAL ONE (12:24)
[2021-01-09] MEDS ORDERED: Ondansetron 4 MG/2 ML VIAL IVP PRN (14:11)
[2021-01-09] MEDS ORDERED: Melatonin 3 MG TABLET PO PRN (14:11)
[2021-01-09] MEDS ORDERED: Naloxone 0.4 MG/ML INJ IVP PRN (14:11)
[2021-01-09] MEDS ORDERED: tiZANidine 4 MG TABLET PO PRN (14:13)
[2021-01-09 14:36] LABS: Estimated Average Glucose 108 mg/dl; Hemoglobin A1C 5.4 %
[2021-01-09 15:07] LABS: Hepatitis B Surface Antigen Nonreactive (Nonreactive)
[2021-01-09 15:12] LABS: Acetaminophen < 10 mcg/mL (10-20)
[2021-01-09 15:12] LABS: Adenovirus Not Detected (Not Detect); Coronavirus 229E Not Detected (Not Detect); Coronavirus HKU1 Not Detected (Not Detect); Coronavirus NL63 Not Detected (Not Detect); Coronavirus OC43 Not Detected (Not Detect); Human Metapneumovirus Not Detected (Not Detect); Human Rhinovirus/Enterovirus Not Detected (Not Detect); Influenza A Subtype 2009 H1 Not Detected (Not Detect); Influenza B Not Detected (Not Detect); SARS-CoV-2 Not Detected (Not Detect)
[2021-01-09 15:13] LABS: Bordetella Pertussis Not Detected (Not Detect); Chlamydophila pneumoniae Not Detected (Not Detect); Mycoplasma pneumoniae Not Detected (Not Detect); Parainfluenza Virus 1 Not Detected (Not Detect); Parainfluenza Virus 2 Not Detected (Not Detect); Parainfluenza Virus 3 Not Detected (Not Detect); Parainfluenza Virus 4 Not Detected (Not Detect); Respiratory Syncytial Virus Not Detected (Not Detect)
[2021-01-09 15:36] LABS: Hepatitis C Virus Antibody Nonreactive (Nonreactive)
[2021-01-09 15:37] LABS: Hepatitis B Core IgM Nonreactive (Nonreactive)
[2021-01-09 15:38] LABS: Hepatitis A Antibody IgM Nonreactive (Nonreactive)
[2021-01-09] MEDS: 0.9 % Sodium Chloride 1,000 ML IVC SCH (16:49)
[2021-01-09] MEDS: levETIRAcetam 250 MG TABLET PO SCH ×2 (16:50→22:08)
[2021-01-09] MEDS: Acetaminophen 325 MG TABLET PO PRN (17:11)
[2021-01-09] MEDS: ALPRAZolam 1 MG TABLET PO PRN (17:12)
[2021-01-09 17:49] LABS: BUN/Creatinine Ratio 9 (6-26); Blood Urea Nitrogen 8 mg/dL (8-23); Calcium 9.2 mg/dL (8.6-10.3); Carbon Dioxide 23 mEq/L (23-29); Chloride 100 mEq/L (98-107); Glucose 113 mg/dL (70-105); Osmolality,Calculated 279 (280-300); Potassium 4.1 mEq/L (3.5-5.1); Salicylate < 2.5 mg/dL (15.0-30.0); Sodium 135 mEq/L (136-145); eGFR For African Americans > 60 (> 60); eGFR For Non-African Americans > 60 (> 60)
[2021-01-09] MEDS: Gabapentin 300 MG CAPSULE PO SCH (22:08)
[2021-01-09] MEDS: OXcarbazepine 150 MG TABLET PO SCH (22:08)
[2021-01-09] MEDS: gemfibroziL 600 MG TABLET PO SCH (22:11)
[2021-01-09 23:03] LABS: Amphetamine Screen,Urine Negative ng/mL (Cutoff=1000); Barbiturate Screen,Urine Negative ng/mL (Cutoff=200); Benzodiazepines Screen,Urine Positive ng/mL (Cutoff=200); Cannabinoid Screen,Urine Positive ng/mL (Cutoff = 50); Cocaine Screen,Urine Negative ng/mL (Cutoff= 300); Opiate Screen,Urine Negative ng/mL (Cutoff=300); Phencyclidine Screen,Urine Negative ng/mL (Cutoff=25)
[2021-01-10] MEDS: 0.9 % Sodium Chloride 1,000 ML IVC SCH (01:29)
[2021-01-10] MEDS: *HR* Enoxaparin 40 MG/0.4 ML SYRINGE SQ SCH (05:24)
[2021-01-10 05:37] LABS: Hematocrit 41.6 % (37.5-50.1); Mean Corpuscular HGB Conc 33.7 g/dL (31.6-35.5); Mean Corpuscular Hemoglobin 33.2 pg (28.0-33.3); Mean Corpuscular Volume 98.6 fL (83.0-100.0); Mean Platelet Volume 10.8 fL (9.4-12.4); Platelet Count 164 K/mcL (140-400); Red Blood Count 4.22 M/mcL (4.19-5.50); Red Cell Distribution Width 12.3 % (11.5-14.5); White Blood Count 10.2 K/mcL (4.3-11.1)
[2021-01-10 05:53] LABS: INR 1.1; Prothrombin Time 12.8 Seconds (9.4-12.1)
[2021-01-10 06:00] LABS: Alanine Aminotransferase 67 Units/L (7-52); Albumin 3.7 g/dL (3.5-5.7); Albumin/Globulin Ratio 1.5 (1.1-2.2); Alkaline Phosphatase 52 Units/L (34-104); Aspartate Amino Transferase 48 Units/L (13-39); BUN/Creatinine Ratio 9 (6-26); Bilirubin,Direct 0.3 mg/dL (0.0-0.2); Bilirubin,Total 1.3 mg/dL (0.3-1.0); Blood Urea Nitrogen 9 mg/dL (8-23); Calcium 8.7 mg/dL (8.6-10.3); Carbon Dioxide 23 mEq/L (23-29); Chloride 106 mEq/L (98-107); Globulin 2.5 g/dL (2.4-3.5); Glucose 107 mg/dL (70-105); Magnesium 2.3 mg/dL (1.6-2.6); Osmolality,Calculated 283 (280-300); Potassium 3.8 mEq/L (3.5-5.1); Sodium 137 mEq/L (136-145); Total Protein 6.2 g/dL (6.4-8.9); eGFR For African Americans > 60 (> 60); eGFR For Non-African Americans > 60 (> 60)
[2021-01-10] MEDS: Thiamine (B-1) 100 MG TABLET PO SCH (08:04)
[2021-01-10] MEDS: Gabapentin 300 MG CAPSULE PO SCH ×2 (08:04→21:09)
[2021-01-10] MEDS: levETIRAcetam 250 MG TABLET PO SCH ×2 (08:05→16:09)
[2021-01-10] MEDS: OXcarbazepine 150 MG TABLET PO SCH ×2 (08:05→21:08)
[2021-01-10] MEDS: Folic Acid 1 MG TABLET PO SCH (08:05)
[2021-01-10] MEDS: gemfibroziL 600 MG TABLET PO SCH ×2 (08:05→16:09)
[2021-01-10] MEDS: Acetaminophen 325 MG TABLET PO PRN (08:06)
[2021-01-10] MEDS: atenoloL 25 MG TABLET PO SCH (08:06)
[2021-01-10] MEDS: ALPRAZolam 1 MG TABLET PO PRN ×2 (08:12→16:10)
[2021-01-10 11:51] LABS: Vitamin B12 362 pg/mL (250-1100)
[2021-01-11] MEDS: *HR* Enoxaparin 40 MG/0.4 ML SYRINGE SQ SCH (05:14)
[2021-01-11] MEDS: ALPRAZolam 1 MG TABLET PO PRN (05:14)
[2021-01-11] MEDS: levETIRAcetam 250 MG TABLET PO SCH (05:15)
[2021-01-11] MEDS: Gabapentin 300 MG CAPSULE PO SCH (07:43)
[2021-01-11] MEDS: Thiamine (B-1) 100 MG TABLET PO SCH (07:43)
[2021-01-11] MEDS: Folic Acid 1 MG TABLET PO SCH (07:43)
[2021-01-11] MEDS: OXcarbazepine 150 MG TABLET PO SCH (07:44)
[2021-01-11] MEDS: atenoloL 25 MG TABLET PO SCH (07:44)
[2021-01-11] MEDS: gemfibroziL 600 MG TABLET PO SCH (07:44)
[2021-01-11 11:06] VITALS: BP 118/77
== END 2021-01-11 11:39 | disposition home or self-care (01) | DRG 101 ==
LOC: SUATTDRO → 3BNU 06:58 → EMEROOARM 06:58 → SUATTDRO 14:26 → 3BNU 15:06
PROVIDERS: ADMIT Internal Medicine; ATTEND Internal Medicine

== ENCOUNTER 2021-03-05 17:47 | Observation (INO) ==
[2021-03-05] MEDS ORDERED: levETIRAcetam 1,000 MG in 0.9 % Sodium Chloride 100 ML IVPB ONE (19:41)
[2021-03-05 21:03] LABS: Bacteria,Urine Few per hpf (None-Few); Bilirubin,Urine Negative (Negative); Blood,Urine Negative (Negative); Clarity,Urine Clear (Clear); Color,Urine Light-Yellow (Yellow); Glucose,Urine (UA) Normal (Normal); Ketones,Urine 40 mg/dL (Negative); Leukocyte Esterase,Urine Negative (Negative); Mucus,Urine Few per lpf (None-Few); Nitrite,Urine Negative (Negative); Protein,Urine 30 mg/dL (Neg-Trace); RBC,Urine 0-3 per hpf (0-3); Urobilinogen,Urine Normal (Normal); WBC,Urine 0-3 per hpf (0-3)
[2021-03-05 21:14] LABS: Red Cell Distribution Width 11.9 % (11.5-14.5)
[2021-03-05 21:16] LABS: Basophils % 0.2 %; Hematocrit 39.4 % (37.5-50.1); Hemoglobin 13.9 g/dL (12.9-16.9); Immature Granulocytes % 0.5 % (0-4); Immature Platelets 8.8 % (1.1-6.1); Lymphocytes # 0.9 K/mcL (0.6-4.6); Lymphocytes % 9.2 %; Mean Corpuscular HGB Conc 35.3 g/dL (31.6-35.5); Mean Corpuscular Hemoglobin 32.6 pg (28.0-33.3); Mean Corpuscular Volume 92.5 fL (83.0-100.0); Mean Platelet Volume 11.1 fL (9.4-12.4); Monocytes % 12.2 %; Neutrophils # 7.3 K/mcL (1.6-8.9); Platelet Count 139 K/mcL (140-400); Red Blood Count 4.26 M/mcL (4.19-5.50); Segmented Neutrophils % 77.9 %; White Blood Count 9.4 K/mcL (4.3-11.1)
[2021-03-05 21:17] LABS: Monocytes # 1.2 K/mcL (0.0-1.3)
[2021-03-05 21:23] LABS: Amphetamine Screen,Urine Negative ng/mL (Cutoff=1000); Barbiturate Screen,Urine Negative ng/mL (Cutoff=200); Benzodiazepines Screen,Urine Negative ng/mL (Cutoff=200); Cannabinoid Screen,Urine Positive ng/mL (Cutoff = 50); Cocaine Screen,Urine Negative ng/mL (Cutoff= 300); Opiate Screen,Urine Negative ng/mL (Cutoff=300); Phencyclidine Screen,Urine Negative ng/mL (Cutoff=25)
[2021-03-05 21:33] LABS: BUN/Creatinine Ratio 13 (6-26); Blood Urea Nitrogen 12 mg/dL (8-23); Calcium 9.1 mg/dL (8.6-10.3); Carbon Dioxide 21 mEq/L (23-29); Chloride 96 mEq/L (98-107); Glucose 102 mg/dL (70-105); Magnesium 2.3 mg/dL (1.6-2.6); Osmolality,Calculated 274 (280-300); Phosphorous 2.6 mg/dL (2.7-4.5); Potassium 3.5 mEq/L (3.5-5.1); Sodium 132 mEq/L (136-145); eGFR For African Americans > 60 (> 60); eGFR For Non-African Americans > 60 (> 60)
[2021-03-05] MEDS ORDERED: Isovue-370 500 ML BOTTLE IVP ONE (23:05)
[2021-03-05] MEDS ORDERED: *HR* LORazepam 2 MG/ML VIAL IVP ONE ×2 (23:07→23:53)
[2021-03-05] MEDS ORDERED: 0.9 % Sodium Chloride 500 ML IVC ONE (23:15)
[2021-03-05] MEDS ORDERED: Thiamine (B-1) 100 MG in 0.9 % Sodium Chloride 50 ML IVPB ONE (23:15)
[2021-03-05] MEDS ORDERED: Folic Acid 1 MG, Thiamine (B-1) 100 MG in 0.9 % Sodium Chloride 100 ML IVPB ONE (23:15)
[2021-03-05] MEDS ORDERED: *HR* LORazepam 2 MG/ML VIAL ONE (23:39)
[2021-03-05 23:49] LABS: Ethanol < 10 mg/dL (Less than 10)
[2021-03-05 23:51] LABS: Troponin I < 0.03 ng/mL (< 0.04)
[2021-03-06 00:57] LABS: Adenovirus Not Detected (Not Detect); Bordetella Pertussis Not Detected (Not Detect); Chlamydophila pneumoniae Not Detected (Not Detect); Coronavirus 229E Not Detected (Not Detect); Coronavirus HKU1 Not Detected (Not Detect); Coronavirus NL63 Not Detected (Not Detect); Coronavirus OC43 Not Detected (Not Detect); Human Metapneumovirus Not Detected (Not Detect); Human Rhinovirus/Enterovirus Not Detected (Not Detect); Influenza A Subtype 2009 H1 Not Detected (Not Detect); Influenza B Not Detected (Not Detect); Mycoplasma pneumoniae Not Detected (Not Detect); Parainfluenza Virus 1 Not Detected (Not Detect); Parainfluenza Virus 2 Not Detected (Not Detect); Parainfluenza Virus 3 Not Detected (Not Detect); Parainfluenza Virus 4 Not Detected (Not Detect); Respiratory Syncytial Virus Not Detected (Not Detect); SARS-CoV-2 Not Detected (Not Detect)
[2021-03-06] MEDS ORDERED: *HR* LORazepam 2 MG/ML VIAL IVP PRN ×2 (00:58)
[2021-03-06] MEDS ORDERED: Ondansetron 4 MG/2 ML VIAL IVP PRN (00:59)
[2021-03-06] MEDS ORDERED: Naloxone 0.4 MG/ML INJ IVP PRN (00:59)
[2021-03-06] MEDS: 0.9 % Sodium Chloride 1,000 ML IVC SCH ×2 (01:52→11:44)
[2021-03-06 03:48] LABS: Basophils % 0.2 %; Hemoglobin 13.7 g/dL (12.9-16.9); Immature Granulocytes % 0.5 % (0-4); Lymphocytes # 0.9 K/mcL (0.6-4.6); Mean Corpuscular HGB Conc 35.1 g/dL (31.6-35.5); Mean Corpuscular Hemoglobin 33.1 pg (28.0-33.3); Mean Corpuscular Volume 94.2 fL (83.0-100.0); Mean Platelet Volume 10.9 fL (9.4-12.4); Monocytes # 1.2 K/mcL (0.0-1.3); Monocytes % 11.3 %; Neutrophils # 8.2 K/mcL (1.6-8.9); Platelet Count 131 K/mcL (140-400); Red Blood Count 4.14 M/mcL (4.19-5.50); Red Cell Distribution Width 11.9 % (11.5-14.5); White Blood Count 10.4 K/mcL (4.3-11.1)
[2021-03-06 04:00] LABS: INR 1.1; Prothrombin Time 12.5 Seconds (9.4-12.1)
[2021-03-06 04:11] LABS: Alanine Aminotransferase 93 Units/L (7-52); Albumin 4.2 g/dL (3.5-5.7); Albumin/Globulin Ratio 1.5 (1.1-2.2); Alkaline Phosphatase 63 Units/L (34-104); Aspartate Amino Transferase 65 Units/L (13-39); BUN/Creatinine Ratio 12 (6-26); Blood Urea Nitrogen 10 mg/dL (8-23); Calcium 9.1 mg/dL (8.6-10.3); Carbon Dioxide 25 mEq/L (23-29); Chloride 98 mEq/L (98-107); Chol/HDL Ratio 2.2 (0-4.9); Cholesterol 116 mg/dL (< 200); Globulin 2.8 g/dL (2.4-3.5); Glucose 95 mg/dL (70-105); HDL Cholesterol 53 mg/dL (40-59); LDL Cholesterol,Calculated 47 mg/dL (< 100); Magnesium 2.3 mg/dL (1.6-2.6); Osmolality,Calculated 277 (280-300); Potassium 3.3 mEq/L (3.5-5.1); Sodium 134 mEq/L (136-145); Triglycerides 82 mg/dL (< 150); eGFR For African Americans > 60 (> 60); eGFR For Non-African Americans > 60 (> 60)
[2021-03-06] MEDS ORDERED: *HR* Enoxaparin 40 MG/0.4 ML SYRINGE SQ SCH (09:00)
[2021-03-06] MEDS ORDERED: Thiamine (B-1) 100 MG, Folic Acid 1 MG, MVI, adult with vitamin K 10 ML in 0.9 % Sodi... IVPB SCH (18:00)
[2021-03-06] MEDS ORDERED: levETIRAcetam 250 MG TABLET PO SCH (20:04)
[2021-03-06] MEDS: Gabapentin 300 MG CAPSULE PO SCH (20:56)
[2021-03-06] MEDS: ALPRAZolam 1 MG TABLET PO PRN (20:56)
[2021-03-06] MEDS: OXcarbazepine 150 MG TABLET PO SCH (20:57)
[2021-03-07 02:13] LABS: Hematocrit 36.4 % (37.5-50.1); Hemoglobin 12.7 g/dL (12.9-16.9); Immature Platelets 6.6 % (1.1-6.1); Mean Corpuscular HGB Conc 34.9 g/dL (31.6-35.5); Mean Corpuscular Hemoglobin 33.5 pg (28.0-33.3); Mean Platelet Volume 10.9 fL (9.4-12.4); Red Blood Count 3.79 M/mcL (4.19-5.50)
[2021-03-07 02:33] LABS: Alanine Aminotransferase 69 Units/L (7-52); Albumin 3.6 g/dL (3.5-5.7); Albumin/Globulin Ratio 1.6 (1.1-2.2); Alkaline Phosphatase 52 Units/L (34-104); Aspartate Amino Transferase 47 Units/L (13-39); BUN/Creatinine Ratio 13 (6-26); Bilirubin,Total 0.8 mg/dL (0.3-1.0); Blood Urea Nitrogen 12 mg/dL (8-23); Calcium 8.6 mg/dL (8.6-10.3); Carbon Dioxide 23 mEq/L (23-29); Chloride 108 mEq/L (98-107); Globulin 2.3 g/dL (2.4-3.5); Glucose 113 mg/dL (70-105); Osmolality,Calculated 287 (280-300); Potassium 3.3 mEq/L (3.5-5.1); Sodium 138 mEq/L (136-145); Total Protein 5.9 g/dL (6.4-8.9); eGFR For African Americans > 60 (> 60); eGFR For Non-African Americans > 60 (> 60)
[2021-03-07] MEDS: ALPRAZolam 1 MG TABLET PO PRN (08:17)
[2021-03-07] MEDS: Gabapentin 300 MG CAPSULE PO SCH (08:18)
[2021-03-07] MEDS: OXcarbazepine 150 MG TABLET PO SCH (08:18)
[2021-03-07] MEDS ORDERED: levETIRAcetam 250 MG TABLET PO SCH (09:00)
[2021-03-07 10:51] VITALS: BP 122/70; PULSE 83; TEMP 98.7; O2SAT 98
== END 2021-03-07 13:11 | disposition home or self-care (01) ==
LOC: EMEROOARM 17:47 → 3BNU 17:47 → SUATTDRO 03-06 01:02 → 3BNU 03-06 01:20
PROVIDERS: ADMIT Internal Medicine; ATTEND Internal Medicine

== ENCOUNTER 2021-05-18 16:30 | Inpatient (IN) ==
[2021-05-18] MEDS ORDERED: 0.9 % Sodium Chloride 1,000 ML IVC ONE (16:48)
[2021-05-18 17:08] LABS: Basophils % 0.3 %; Eosinophils % 0.1 %; Hematocrit 36.8 % (37.5-50.1); Immature Granulocytes % 0.5 % (0-4); Lymphocytes # 1.6 K/mcL (0.6-4.6); Mean Corpuscular HGB Conc 35.3 g/dL (31.6-35.5); Mean Corpuscular Hemoglobin 34.7 pg (28.0-33.3); Mean Corpuscular Volume 98.1 fL (83.0-100.0); Mean Platelet Volume 10.5 fL (9.4-12.4); Monocytes % 9.9 %; Platelet Count 146 K/mcL (140-400); Red Blood Count 3.75 M/mcL (4.19-5.50); Red Cell Distribution Width 13.5 % (11.5-14.5); Segmented Neutrophils % 72.2 %; White Blood Count 9.6 K/mcL (4.3-11.1)
[2021-05-18 17:28] LABS: Alanine Aminotransferase 60 Units/L (7-52); Albumin 4.1 g/dL (3.5-5.7); Albumin/Globulin Ratio 1.3 (1.1-2.2); Alkaline Phosphatase 127 Units/L (34-104); Aspartate Amino Transferase 86 Units/L (13-39); BUN/Creatinine Ratio 9 (6-26); Bilirubin,Total 1.2 mg/dL (0.3-1.0); Blood Urea Nitrogen 9 mg/dL (8-23); Calcium 8.7 mg/dL (8.6-10.3); Carbon Dioxide 22 mEq/L (23-29); Chloride 102 mEq/L (98-107); Ethanol < 10 mg/dL (Less than 10); Globulin 3.2 g/dL (2.4-3.5); Glucose 152 mg/dL (70-105); Magnesium 1.6 mg/dL (1.6-2.6); Osmolality,Calculated 284 (280-300); Potassium 2.9 mEq/L (3.5-5.1); Sodium 136 mEq/L (136-145); Total Protein 7.3 g/dL (6.4-8.9); eGFR For African Americans > 60 (> 60); eGFR For Non-African Americans > 60 (> 60)
[2021-05-18 18:30] LABS: Bilirubin,Urine Negative (Negative); Blood,Urine Negative (Negative); Clarity,Urine Clear (Clear); Color,Urine Yellow (Yellow); Glucose,Urine (UA) Normal (Normal); Ketones,Urine 10 mg/dL (Negative); Leukocyte Esterase,Urine Negative (Negative); Nitrite,Urine Negative (Negative); Protein,Urine Trace mg/dL (Neg-Trace); Specific Gravity,Urine 1.016 (1.010-1.025); Urobilinogen,Urine Normal (Normal)
[2021-05-18 18:43] LABS: Amphetamine Screen,Urine Negative ng/mL (Cutoff=1000); Barbiturate Screen,Urine Negative ng/mL (Cutoff=200); Benzodiazepines Screen,Urine Positive ng/mL (Cutoff=200); Cannabinoid Screen,Urine Negative ng/mL (Cutoff = 50); Cocaine Screen,Urine Negative ng/mL (Cutoff= 300); Opiate Screen,Urine Negative ng/mL (Cutoff=300); Phencyclidine Screen,Urine Negative ng/mL (Cutoff=25)
[2021-05-18] MEDS ORDERED: *HR* LORazepam 2 MG/ML VIAL ONE (19:21)
[2021-05-18] MEDS ORDERED: *HR* LORazepam 2 MG/ML VIAL IVP ONE (19:23)
[2021-05-18] MEDS ORDERED: levETIRAcetam 1,000 MG in 0.9 % Sodium Chloride 100 ML IVPB ONE (19:47)
[2021-05-18] MEDS ORDERED: Acetaminophen 325 MG TABLET PO PRN (20:35)
[2021-05-18] MEDS ORDERED: Naloxone 0.4 MG/ML INJ IVP PRN (20:35)
[2021-05-18] MEDS ORDERED: Ondansetron 4 MG/2 ML VIAL IVP PRN (20:35)
[2021-05-18] MEDS ORDERED: *HR* LORazepam 2 MG/ML VIAL IVP PRN ×3 (21:46)
[2021-05-18] MEDS: Thiamine (B-1) 100 MG, Folic Acid 1 MG, MVI, adult with vitamin K 10 ML in 0.9 % Sodi... IVPB SCH (23:18)
[2021-05-18] MEDS: ALPRAZolam 1 MG TABLET PO PRN (23:20)
[2021-05-19 02:28] LABS: Basophils % 0.4 %; Eosinophils % 0.5 %; Hematocrit 30.5 % (37.5-50.1); Immature Granulocytes % 0.6 % (0-4); Mean Corpuscular HGB Conc 34.8 g/dL (31.6-35.5); Mean Corpuscular Hemoglobin 34.9 pg (28.0-33.3); Mean Corpuscular Volume 100.3 fL (83.0-100.0); Mean Platelet Volume 10.6 fL (9.4-12.4); Monocytes # 1.1 K/mcL (0.0-1.3); Monocytes % 13.1 %; Neutrophils # 5.3 K/mcL (1.6-8.9); Platelet Count 117 K/mcL (140-400); Red Blood Count 3.04 M/mcL (4.19-5.50); Red Cell Distribution Width 13.7 % (11.5-14.5); Segmented Neutrophils % 62.4 %; White Blood Count 8.5 K/mcL (4.3-11.1)
[2021-05-19 02:36] LABS: Hemoglobin 10.6 g/dL (12.9-16.9)
[2021-05-19 02:56] LABS: BUN/Creatinine Ratio 10 (6-26); Blood Urea Nitrogen 8 mg/dL (8-23); Calcium 7.6 mg/dL (8.6-10.3); Carbon Dioxide 22 mEq/L (23-29); Chloride 108 mEq/L (98-107); Glucose 95 mg/dL (70-105); Magnesium 1.9 mg/dL (1.6-2.6); Osmolality,Calculated 286 (280-300); Phosphorous 3.2 mg/dL (2.7-4.5); Potassium 3.3 mEq/L (3.5-5.1); Sodium 139 mEq/L (136-145); eGFR For African Americans > 60 (> 60); eGFR For Non-African Americans > 60 (> 60)
[2021-05-19] MEDS: *HR* Heparin 5,000 UNIT/ML VIAL SQ SCH ×2 (06:22→17:26)
[2021-05-19] MEDS: hydrALAZINE 25 MG TABLET PO SCH ×3 (08:33→20:33)
[2021-05-19] MEDS: Gabapentin 300 MG CAPSULE PO SCH ×2 (08:34→20:32)
[2021-05-19] MEDS: atenoloL 25 MG TABLET PO SCH (08:34)
[2021-05-19] MEDS: Cholecalciferol (D-3) 1,000 UNIT (25MCG) TABLET PO SCH (08:35)
[2021-05-19] MEDS: ALPRAZolam 1 MG TABLET PO PRN ×3 (08:49→20:34)
[2021-05-19] MEDS ORDERED: levETIRAcetam 250 MG TABLET PO SCH (09:00)
[2021-05-19 10:04] LABS: Alanine Aminotransferase 46 Units/L (7-52); Albumin 3.3 g/dL (3.5-5.7); Albumin/Globulin Ratio 1.3 (1.1-2.2); Alkaline Phosphatase 95 Units/L (34-104); Aspartate Amino Transferase 65 Units/L (13-39); Bilirubin,Direct 0.2 mg/dL (0.0-0.2); Bilirubin,Indirect 0.9 mg/dL (0.0-1.0); Bilirubin,Total 1.1 mg/dL (0.3-1.0); Globulin 2.6 g/dL (2.4-3.5); Total Protein 5.9 g/dL (6.4-8.9)
[2021-05-19] MEDS: OXcarbazepine 150 MG TABLET PO SCH ×2 (15:10→20:33)
[2021-05-19] MEDS: Thiamine (B-1) 100 MG, Folic Acid 1 MG, MVI, adult with vitamin K 10 ML in 0.9 % Sodi... IVPB SCH (17:41)
[2021-05-19] MEDS: levETIRAcetam 250 MG TABLET PO SCH (20:32)
[2021-05-20] MEDS: ALPRAZolam 1 MG TABLET PO PRN ×2 (03:18→10:46)
[2021-05-20 05:24] LABS: BUN/Creatinine Ratio 15 (6-26); Blood Urea Nitrogen 12 mg/dL (8-23); Carbon Dioxide 21 mEq/L (23-29); Chloride 112 mEq/L (98-107); Glucose 113 mg/dL (70-105); Magnesium 1.8 mg/dL (1.6-2.6); Osmolality,Calculated 297 (280-300); Phosphorous 2.8 mg/dL (2.7-4.5); Potassium 3.2 mEq/L (3.5-5.1); Sodium 143 mEq/L (136-145); eGFR For African Americans > 60 (> 60); eGFR For Non-African Americans > 60 (> 60)
[2021-05-20 07:01] VITALS: BP 150/53; PULSE 62; TEMP 98.1; O2SAT 97
[2021-05-20] MEDS: *HR* Heparin 5,000 UNIT/ML VIAL SQ SCH (07:20)
[2021-05-20] MEDS: Gabapentin 300 MG CAPSULE PO SCH (10:42)
[2021-05-20] MEDS: Cholecalciferol (D-3) 1,000 UNIT (25MCG) TABLET PO SCH (10:42)
[2021-05-20] MEDS: atenoloL 25 MG TABLET PO SCH (10:42)
[2021-05-20] MEDS: levETIRAcetam 250 MG TABLET PO SCH (10:42)
[2021-05-20] MEDS: OXcarbazepine 150 MG TABLET PO SCH (10:47)
[2021-05-20] MEDS ORDERED: FLU Vac QV 21-22 (6Month+)/PF 0.5 ML SYRINGE IM ONE (10:59)
== END 2021-05-20 12:07 | disposition home or self-care (01) | DRG 101 ==
LOC: 2NENU 16:30 → EMEROOARM 16:30 → SUATTDRO 21:01 → 2NENU 22:08
PROVIDERS: ADMIT Family Medicine; ATTEND Internal Medicine

== ENCOUNTER 2022-03-06 11:40 | Inpatient (IN) ==
[2022-03-06] MEDS ORDERED: 0.9 % Sodium Chloride 1,000 ML IVC ONE ×2 (11:46→13:48)
[2022-03-06] MEDS ORDERED: *HR* LORazepam 2 MG/ML VIAL IVP ONE ×2 (11:46→13:09)
[2022-03-06 12:56] LABS: White Blood Count 4.7 K/mcL (4.3-11.1)
[2022-03-06 12:57] LABS: Basophils % 0.4 %; Hematocrit 40.1 % (37.5-50.1); Hemoglobin 14.5 g/dL (12.9-16.9); Immature Granulocytes % 0.8 % (0-4); Lymphocytes # 0.3 K/mcL (0.6-4.6); Lymphocytes % 6.1 %; Mean Corpuscular HGB Conc 36.2 g/dL (31.6-35.5); Mean Corpuscular Hemoglobin 34.3 pg (28.0-33.3); Mean Corpuscular Volume 94.8 fL (83.0-100.0); Mean Platelet Volume 10.7 fL (9.4-12.4); Monocytes # 0.7 K/mcL (0.0-1.3); Monocytes % 13.9 %; Neutrophils # 3.7 K/mcL (1.6-8.9); Platelet Count 133 K/mcL (140-400); Red Blood Count 4.23 M/mcL (4.19-5.50); Red Cell Distribution Width 11.9 % (11.5-14.5); Segmented Neutrophils % 78.8 %
[2022-03-06] MEDS ORDERED: Ondansetron 4 MG/2 ML VIAL IVP ONE (12:58)
[2022-03-06 13:46] LABS: Alanine Aminotransferase 121 Units/L (7-52); Albumin 4.2 g/dL (3.5-5.7); Alkaline Phosphatase 58 Units/L (34-104); Aspartate Amino Transferase 187 Units/L (13-39); BUN/Creatinine Ratio 10 (6-26); Bilirubin,Direct 0.2 mg/dL (0.0-0.2); Bilirubin,Indirect 0.6 mg/dL (0.0-1.0); Bilirubin,Total 0.8 mg/dL (0.3-1.0); Blood Urea Nitrogen 8 mg/dL (8-23); Calcium 8.5 mg/dL (8.6-10.3); Carbon Dioxide 18 mEq/L (23-29); Chloride 85 mEq/L (98-107); Glucose 141 mg/dL (70-105); Osmolality,Calculated 251 (280-300); Potassium 3.6 mEq/L (3.5-5.1); Sodium 120 mEq/L (136-145); Total Protein 6.8 g/dL (6.4-8.9)
[2022-03-06 13:47] LABS: Albumin/Globulin Ratio 1.6 (1.1-2.2); Carbamazepine (Tegretol) < 1 mcg/mL (4-12); Globulin 2.6 g/dL (2.4-3.5); Lipase 49 Units/L (11-82)
[2022-03-06] MEDS ORDERED: Ondansetron ODT 4 MG TAB.RAPDIS SL PRN (14:02)
[2022-03-06] MEDS ORDERED: Naloxone 0.4 MG/ML INJ IVP PRN (14:02)
[2022-03-06] MEDS ORDERED: Melatonin 3 MG TABLET PO PRN (14:02)
[2022-03-06] MEDS ORDERED: Acetaminophen 325 MG TABLET PO PRN (14:02)
[2022-03-06] MEDS ORDERED: *HR* LORazepam 1 MG TABLET PO PRN ×5 (14:04→16:13)
[2022-03-06] MEDS ORDERED: 0.9 % Sodium Chloride 1,000 ML IVC SCH (14:15)
[2022-03-06] MEDS: Thiamine (B-1) 100 MG TABLET PO SCH (15:07)
[2022-03-06] MEDS: Folic Acid 1 MG TABLET PO SCH (15:07)
[2022-03-06] MEDS: Vitamin B Complex/Vit C/Vit E 1 EACH TABLET PO SCH (15:49)
[2022-03-06 16:16] LABS: Alanine Aminotransferase 110 Units/L (7-52); Albumin 3.8 g/dL (3.5-5.7); Albumin/Globulin Ratio 1.5 (1.1-2.2); Alkaline Phosphatase 53 Units/L (34-104); Aspartate Amino Transferase 161 Units/L (13-39); Bilirubin,Direct 0.2 mg/dL (0.0-0.2); Bilirubin,Indirect 0.5 mg/dL (0.0-1.0); Bilirubin,Total 0.7 mg/dL (0.3-1.0); Ethanol < 10 mg/dL (Less than 10); Globulin 2.5 g/dL (2.4-3.5); Total Protein 6.3 g/dL (6.4-8.9)
[2022-03-06 16:18] LABS: BUN/Creatinine Ratio 10 (6-26); Blood Urea Nitrogen 7 mg/dL (8-23); Calcium 6.9 mg/dL (8.6-10.3); Carbon Dioxide 20 mEq/L (23-29); Chloride 97 mEq/L (98-107); Glucose 113 mg/dL (70-105); Osmolality,Calculated 263 (280-300); Sodium 127 mEq/L (136-145)
[2022-03-06] MEDS: *HR* LORazepam 1 MG TABLET PO PRN ×2 (17:10→19:58)
[2022-03-06] MEDS: Calcium Gluconate 1gm/50mL 1 GM/50 ML BAG IVPB SCH ×2 (17:57→19:07)
[2022-03-06] MEDS: Gabapentin 300 MG CAPSULE PO SCH (19:58)
[2022-03-06] MEDS: *HR* Heparin 5,000 UNIT/ML VIAL SQ SCH (20:57)
[2022-03-06 21:18] LABS: BUN/Creatinine Ratio 9 (6-26); Blood Urea Nitrogen 8 mg/dL (8-23); Calcium 9.1 mg/dL (8.6-10.3); Carbon Dioxide 25 mEq/L (23-29); Chloride 93 mEq/L (98-107); Glucose 109 mg/dL (70-105); Osmolality,Calculated 261 (280-300); Potassium 3.9 mEq/L (3.5-5.1); Sodium 126 mEq/L (136-145)
[2022-03-06] MEDS: hydrALAZINE 25 MG TABLET PO SCH (21:50)
[2022-03-07 05:21] LABS: Red Blood Count 3.99 M/mcL (4.19-5.50); White Blood Count 4.9 K/mcL (4.3-11.1)
[2022-03-07 05:22] LABS: Basophils % 0.4 %; Eosinophils % 0.2 %; Hematocrit 38.9 % (37.5-50.1); Hemoglobin 13.8 g/dL (12.9-16.9); Immature Granulocytes % 0.6 % (0-4); Lymphocytes # 1.1 K/mcL (0.6-4.6); Lymphocytes % 22.7 %; Mean Corpuscular HGB Conc 35.5 g/dL (31.6-35.5); Mean Corpuscular Hemoglobin 34.6 pg (28.0-33.3); Mean Corpuscular Volume 97.5 fL (83.0-100.0); Mean Platelet Volume 10.3 fL (9.4-12.4); Monocytes # 1.1 K/mcL (0.0-1.3); Monocytes % 21.5 %; Neutrophils # 2.7 K/mcL (1.6-8.9); Platelet Count 134 K/mcL (140-400); Red Cell Distribution Width 12.1 % (11.5-14.5); Segmented Neutrophils % 54.6 %
[2022-03-07 06:09] LABS: Platelet Estimate Normal (Normal)
[2022-03-07] MEDS: *HR* Heparin 5,000 UNIT/ML VIAL SQ SCH ×3 (06:38→20:44)
[2022-03-07 07:02] LABS: Phosphorous 3.1 mg/dL (2.7-4.5); Potassium 3.7 mEq/L (3.5-5.1)
[2022-03-07] MEDS: Thiamine (B-1) 100 MG TABLET PO SCH (08:54)
[2022-03-07] MEDS: Folic Acid 1 MG TABLET PO SCH (08:54)
[2022-03-07] MEDS: Vitamin B Complex/Vit C/Vit E 1 EACH TABLET PO SCH (08:54)
[2022-03-07] MEDS: Gabapentin 300 MG CAPSULE PO SCH ×2 (08:54→20:44)
[2022-03-07] MEDS: hydrALAZINE 25 MG TABLET PO SCH ×3 (08:55→20:44)
[2022-03-07] MEDS: *HR* LORazepam 1 MG TABLET PO PRN ×2 (09:16→16:03)
[2022-03-07] MEDS ORDERED: Benzonatate 100 MG CAPSULE PO PRN (10:10)
[2022-03-07] MEDS: ALPRAZolam 1 MG TABLET PO PRN (20:44)
[2022-03-08] MEDS ORDERED: *HR* Metoprolol 5 MG/5 ML VIAL IVP ONE (02:11)
[2022-03-08 03:45] LABS: BUN/Creatinine Ratio 9 (6-26); Blood Urea Nitrogen 8 mg/dL (8-23); Calcium 8.6 mg/dL (8.6-10.3); Carbon Dioxide 25 mEq/L (23-29); Chloride 100 mEq/L (98-107); Glucose 98 mg/dL (70-105); Osmolality,Calculated 278 (280-300); Potassium 3.2 mEq/L (3.5-5.1); Sodium 135 mEq/L (136-145)
[2022-03-08 03:55] LABS: Hematocrit 41.3 % (37.5-50.1); Hemoglobin 14.1 g/dL (12.9-16.9); Lymphocytes # 1.8 K/mcL (0.6-4.6); Mean Corpuscular HGB Conc 34.1 g/dL (31.6-35.5); Mean Corpuscular Hemoglobin 34.1 pg (28.0-33.3); Mean Platelet Volume 10.6 fL (9.4-12.4); Platelet Count 133 K/mcL (140-400); Red Blood Count 4.13 M/mcL (4.19-5.50); Red Cell Distribution Width 12.1 % (11.5-14.5); White Blood Count 4.7 K/mcL (4.3-11.1)
[2022-03-08] MEDS: *HR* Heparin 5,000 UNIT/ML VIAL SQ SCH ×3 (04:15→21:10)
[2022-03-08 05:33] LABS: Monocytes # 0.7 K/mcL (0.0-1.3); Neutrophils # 2.3 K/mcL (1.6-8.9)
[2022-03-08 05:34] LABS: Platelet Estimate Slight Decrease (Normal)
[2022-03-08] MEDS: ALPRAZolam 1 MG TABLET PO PRN (08:12)
[2022-03-08] MEDS: Folic Acid 1 MG TABLET PO SCH (08:12)
[2022-03-08] MEDS: Vitamin B Complex/Vit C/Vit E 1 EACH TABLET PO SCH (08:12)
[2022-03-08] MEDS: hydrALAZINE 25 MG TABLET PO SCH ×3 (08:12→21:10)
[2022-03-08] MEDS: Gabapentin 300 MG CAPSULE PO SCH ×2 (08:12→21:10)
[2022-03-08] MEDS: atenoloL 50 MG TABLET PO SCH (08:12)
[2022-03-08] MEDS: Thiamine (B-1) 100 MG TABLET PO SCH (08:18)
[2022-03-08] MEDS: *HR* LORazepam 1 MG TABLET PO PRN ×2 (15:10→21:11)
[2022-03-08 16:05] LABS: Adenovirus F 40/41 PCR Not detected (Not detect); Astrovirus PCR Not detected (Not detect); C.difficile Toxin A/B Gene PCR Not detected (Not detect); Campylobacter by PCR Not detected (Not detect); Cryptosporidium by PCR Not detected (Not detect); Cyclospora cayetanensis PCR Not detected (Not detect); Entamoeba histolytica PCR Not detected (Not detect); Enteroaggregative E.coli(EAEC) Not detected (Not detect); Enteropathogenic E.coli(EPEC) Not detected (Not detect); Enterotoxigenic E.coli (ETEC) Not detected (Not detect); Giardia lamblia PCR Not detected (Not detect); Norovirus GI/GII PCR Not detected (Not detect); Plesiomonas shigelloides PCR Not detected (Not detect); Rotavirus A PCR Not detected (Not detect); Salmonella PCR Not detected (Not detect); Sapovirus PCR Not detected (Not detect); Shig/EnteroinvasiveE coli EIEC Not detected (Not detect); Shigalike tox-prod E coli STEC Not detected (Not detect); Vibrio PCR Not detected (Not detect); Vibrio cholerae PCR Not detected (Not detect); Yersinia enterocolitica PCR Not detected (Not detect)
[2022-03-09 01:27] LABS: Basophils % 0.4 %; Eosinophils % 0.2 %; Hematocrit 40.4 % (37.5-50.1); Hemoglobin 13.7 g/dL (12.9-16.9); Immature Granulocytes % 0.4 % (0-4); Lymphocytes # 1.6 K/mcL (0.6-4.6); Lymphocytes % 31.5 %; Mean Corpuscular HGB Conc 33.9 g/dL (31.6-35.5); Mean Corpuscular Hemoglobin 34.3 pg (28.0-33.3); Mean Platelet Volume 10.5 fL (9.4-12.4); Monocytes # 0.9 K/mcL (0.0-1.3); Monocytes % 17.7 %; Neutrophils # 2.5 K/mcL (1.6-8.9); Platelet Count 107 K/mcL (140-400); Red Cell Distribution Width 12.1 % (11.5-14.5); Segmented Neutrophils % 49.8 %
[2022-03-09 01:46] LABS: BUN/Creatinine Ratio 10 (6-26); Blood Urea Nitrogen 9 mg/dL (8-23); Calcium 8.3 mg/dL (8.6-10.3); Carbon Dioxide 25 mEq/L (23-29); Chloride 103 mEq/L (98-107); Glucose 112 mg/dL (70-105); Osmolality,Calculated 279 (280-300); Potassium 3.5 mEq/L (3.5-5.1); Sodium 135 mEq/L (136-145)
[2022-03-09 05:51] VITALS: BP 164/76; PULSE 62; TEMP 97.9; O2SAT 93
[2022-03-09] MEDS: *HR* Heparin 5,000 UNIT/ML VIAL SQ SCH (06:20)
[2022-03-09] MEDS: *HR* LORazepam 1 MG TABLET PO PRN ×2 (06:20→10:08)
[2022-03-09] MEDS: Folic Acid 1 MG TABLET PO SCH (09:59)
[2022-03-09] MEDS: hydrALAZINE 25 MG TABLET PO SCH (09:59)
[2022-03-09] MEDS: atenoloL 50 MG TABLET PO SCH (09:59)
[2022-03-09] MEDS: Gabapentin 300 MG CAPSULE PO SCH (09:59)
[2022-03-09] MEDS: Vitamin B Complex/Vit C/Vit E 1 EACH TABLET PO SCH (09:59)
[2022-03-09] MEDS: Thiamine (B-1) 100 MG TABLET PO SCH (09:59)
== END 2022-03-09 14:44 | disposition home health service (06) | DRG 101 ==
LOC: EMEROOARM 11:40 → 2NNU 19:02 → 2NENU 03-07 20:15
PROVIDERS: ADMIT Internal Medicine; ATTEND Internal Medicine